=== PATIENT | female | born 1975 | race Caucasian/White ===

== ENCOUNTER 2020-11-01 11:16 | Outpatient (REF) | payer OTHER, SELFPAY ==
--- NOTE | 2020-11-01 11:21 | XR_ITS ---
EXAMINATION: XR CHEST CLINICAL INFORMATION: Shortness of breath COMPARISON: Previous chest x-rays most recent available November 2007 TECHNIQUE: 2 views of the chest were obtained. FINDINGS: The cardiac and mediastinal contours are normal. The lungs are clear. There is no pleural effusion or pneumothorax. Bony structures are unremarkable. XR/XR chest 2V IMPRESSION: Unremarkable examination.
[2020-11-01 14:06] LABS: MANUAL DIFF FLAG NO
[2020-11-01 14:18] LABS: Basophils Percent Auto 0.5 % (0-2); Eosinophils Absolute Auto 0.2 X10*3/uL (0.0-0.4); Eosinophils Percent Auto 1.9 % (0-4); Hematocrit 40.6 % (37-47); Hemoglobin 13.3 g/dl (12.0-16.0); Imm Gran Abs Auto 0.01 X10*3/uL (0.00-0.03); Imm Gran Pct Auto 0.1 % (0.0-0.4); Lymphocytes Absolute Auto 2.5 X10*3/uL (1.2-4.9); Lymphocytes Percent Auto 31.1 % (20-40); Mean Corpuscular HGB Conc 32.8 g/dl (31.0-35.0); Mean Corpuscular Hemoglobin 31.5 pg (27.0-33.0); Mean Corpuscular Volume 96.2 fL (80-98); Mean Platelet Volume 10.1 fL (9.4-12.3); Monocytes Absolute Auto 0.5 X10*3/uL (0.1-1.2); Monocytes Percent Auto 6.1 % (2-11); Neutrophils Absolute Auto 4.8 X10*3/uL (2.0-8.3); Neutrophils Percent Auto 60.3 % (45-73); Platelet Count 296 X10*3/uL (160-400); Red Blood Count 4.22 X10*6/uL (4.20-5.50); Red Cell Distribution Width 12.1 % (11.0-16.0); White Blood Count 7.9 X10*3/uL (4.8-10.8)
[2020-11-01 14:50] LABS: Anion Gap 12 (12-20); Blood Urea Nitrogen 12 mg/dL (9-16); Calcium 8.7 mg/dL (8.4-10.2); Carbon Dioxide 26 mmol/L (22-29); Chloride 105 mmol/L (96-108); Estimated Glomerular Filt Rate > 60; Glucose Fasting 84 mg/dL (60-99); Sodium 139 mmol/L (135-145)
== END 2020-11-01 11:17 | disposition home or self-care (01) ==
LOC: HO.HMGCLDS 11:16
PROVIDERS: Nurse Practitioner Family; PCP Internal Medicine; Visit Provider Nurse Practitioner Family
DX: R06.02 Shortness of breath (principal)
CPT/HCPCS: 36415; 71046; 80048; 85025

== ENCOUNTER 2020-11-01 11:16 | Outpatient (REF) | payer OTHER, SELFPAY | END 2020-11-01 11:17 | disposition home or self-care (01) | LOC: HO.LAB 11:16 | PROVIDERS: Visit Provider Nurse Practitioner Family | DX: Z20.828 Contact with and (suspected) exposure to other viral communicable diseases (principal) | CPT/HCPCS: U0003 ==

== ENCOUNTER 2020-12-19 07:09 | Outpatient (REF) | payer OTHER, SELFPAY ==
[2020-12-19 07:47] LABS: MANUAL DIFF FLAG NO
[2020-12-19 07:59] LABS: Basophils Absolute Auto 0.1 X10*3/uL (0.0-0.2); Basophils Percent Auto 0.7 % (0-2); Eosinophils Absolute Auto 0.2 X10*3/uL (0.0-0.4); Eosinophils Percent Auto 2.5 % (0-4); Hematocrit 42.1 % (37-47); Hemoglobin 13.6 g/dl (12.0-16.0); Imm Gran Abs Auto 0.01 X10*3/uL (0.00-0.03); Imm Gran Pct Auto 0.1 % (0.0-0.4); Lymphocytes Absolute Auto 2.4 X10*3/uL (1.2-4.9); Lymphocytes Percent Auto 31.3 % (20-40); Mean Corpuscular HGB Conc 32.3 g/dl (31.0-35.0); Mean Corpuscular Hemoglobin 31.2 pg (27.0-33.0); Mean Corpuscular Volume 96.6 fL (80-98); Mean Platelet Volume 9.7 fL (9.4-12.3); Monocytes Absolute Auto 0.5 X10*3/uL (0.1-1.2); Monocytes Percent Auto 6.5 % (2-11); Neutrophils Absolute Auto 4.5 X10*3/uL (2.0-8.3); Neutrophils Percent Auto 58.9 % (45-73); Platelet Count 311 X10*3/uL (160-400); Red Blood Count 4.36 X10*6/uL (4.20-5.50); White Blood Count 7.6 X10*3/uL (4.8-10.8)
[2020-12-19 08:00] LABS: INTERNATIONAL NORM RATIO 1.1 (0.9-1.1); Prothrombin Time 12.5 SEC (10.8-13.0)
[2020-12-19 08:03] LABS: Partial Thromboplastin Time 33.7 SEC (24.1-38.0)
[2020-12-19 08:15] LABS: Glucose Urine UA NEG (NEG); Leukocyte Esterase Urine NEG (NEG); Nitrite Urine NEG (NEG); PH 6.5 (5.0-8.0); Specific Gravity - Urine 1.025 (1.005-1.025); Urine Blood TRACE (NEG); Urine Ketones NEG (NEG); Urine Protein NEG (NEG-TRACE)
[2020-12-19 08:19] LABS: Alanine Aminotransferase 7 U/L (0-31); Albumin Level 4.1 g/dL (3.5-5.0); Alkaline Phosphatase 78 U/L (39-117); Anion Gap 13 (12-20); Aspartate Amino Transferase 13 U/L (5-31); Bilirubin Total 0.3 mg/dL (0.0-1.0); Blood Urea Nitrogen 12 mg/dL (9-16); Calcium 8.5 mg/dL (8.4-10.2); Carbon Dioxide 26 mmol/L (22-29); Chloride 106 mmol/L (96-108); Cholesterol 205 mg/dL; Estimated Glomerular Filt Rate > 60; Glucose Fasting 87 mg/dL (60-99); HDL Cholesterol 48 mg/dL; LDL Cholesterol Calculated 138 mg/dl; Potassium 4.1 mmol/L (3.3-5.1); Sodium 141 mmol/L (135-145); Total Protein 6.8 g/dL (6.5-8.0); Triglycerides 99 mg/dL
[2020-12-19 08:20] LABS: Appearance Urine HAZY; Color Urine YELLOW
[2020-12-19 08:33] LABS: Mucus Urine 2+ /LPF; Squamous Epithelial Cell Urine 1+ /LPF; WBC Urine 0 /HPF (0-4)
[2020-12-19 08:38] LABS: HIV AB/AG Nonreactive (Nonreactive); HIV Num 1 0.07 S/CO (0.00-0.99)
[2020-12-19 08:42] LABS: TSH reflex Free T4 1.11 uIU/mL (0.32-4.0)
== END 2020-12-19 07:10 | disposition home or self-care (01) ==
LOC: HO.LAB 07:09
PROVIDERS: Visit Provider Internal Medicine
DX: Z00.00 Encounter for general adult medical examination without abnormal findings (principal)
CPT/HCPCS: 36415; 80053; 80061; 81001; 81003; 84443; 85025; 85610; 85730; 86900; 86901; 87389

== ENCOUNTER 2021-08-31 14:06 | Outpatient (REF) | payer OTHER, SELFPAY ==
[2021-08-31 14:55] LABS: Influenza A PCR NEGATIVE (Negative); Influenza B PCR NEGATIVE (Negative); Resp Syncy Virus RNA Qual PCR NEGATIVE (Negative); SARS COV2 PCR INHOUSE NEGATIVE (Negative)
== END 2021-08-31 14:07 | disposition home or self-care (01) ==
LOC: HO.LNP 14:06
PROVIDERS: Visit Provider Physician Assistant Medical
DX: Z20.822 Contact with and (suspected) exposure to COVID-19 (principal); J06.9 Acute upper respiratory infection, unspecified
CPT/HCPCS: 0241U

== ENCOUNTER 2021-09-11 13:15 | Outpatient (AMB) | payer OTHER, SELFPAY ==
[2021-09-11 13:21] VITALS: BP 120/76; TEMP 36.1; O2SAT 98; BMI 22.4
--- NOTE | 2021-09-11 13:21 | MHC.PC.OV ---
Vital Signs 09/11/21 13:21 Height 5 ft 4 in Weight 131 lb BMI 22.4 BP 120/76 Blood Pressure Location Lt brachial Position Sitting Temp 96.9 F Temp Source Temporal Artery Scan Pulse Oximetry (%) 98 Oxygen Delivery Method Room Air Intake Visit Reasons: migraine, depression Byproducts Operator Required: No Accompanied by: Self / Same As Patient Allergies No Known Allergies Allergy (Verified 09/05/25 10:02) Tobacco use date assessed: 07/12/21 HPI migraine, depression HPI Details 10/01 - surgery in [facility] Medical History (Updated 09/05/25 @ 10:57 by Aline Quarles NP) Epigastric pain COVID-19 Pre-operative clearance Viral illness Pure hypercholesterolemia Smoker Anxiety and depression Migraine Nohemi rash of groin Surgical History History of eyelid surgery Status post abdominoplasty (~01/13/20) History of section History of tubal ligation Family History Father HTN (hypertension) Heart attack Mother No problems noted. Family/Other Breast cancer Social History Household Members: Spouse Household Members Other:: son Housing: House Alcohol intake: current Alcohol intake frequency: holidays/special occasions only Patient Tobacco Use Status: Current everyday Tobacco user Tobacco use type: Cigarette Cigarettes Per Day: 6 e-Cigarette/Vaping Use: Never Used Second Hand Smoke Exposure: No service: No Current occupational status: employed Current occupation: [employer] Current occupational exposures/hazards: No Sexual orientation: Straight/Heterosexual Gender identity: Female Cognitive needs: No Hearing needs: No Vision needs: No Questionnaire Thrive Questionnaire Date Thrive assessed: 07/12/21 JOSE-7 AMB Questionnaire JOSE-7 Date JOSE - 7 assessed: 07/12/21 Source: Developed by Drs. Tyshawn Peña, Nataliya Ramirez, Rolf Giles and colleagues, with an educational luis enrique from [employer]. Physical exam (Primary Care) Vital Signs: Last Vital Signs Temp 96.9 F 09/11/21 13:21 BP 120/76 09/11/21 13:21 Pulse Ox 98 09/11/21 13:21 Oxygen Delivery Method Room Air 09/11/21 13:21 BMI result Body Mass Index 22.4 Tobacco/Smoking Status: Tobacco use Status Tobacco use date assessed 07/12/21 09/11/21 13:25 Patient Tobacco Use Status Current everyday Tobacco 09/11/21 13:25 e-Cigarette/Vaping Use Never Used 09/11/21 13:25 Thrive Assessment: Date of Thrive Assessment Date Thrive assessed 07/12/21 09/11/21 13:25 Office Procedures Flu Questionnaire Does the patient have a severe egg allergy?: No Immunizations flu vacc [id number] 6mos up(PF) 60 mcg(15 mcgx4)/0.5 mL IM syringe Performing Provider: Lonny Garcia MD [facility] Documented (not given) by: HAN Grewal on 09/11/21 13:25 Reason Not Given: Patient Refused Coding Level of Care Code Admin Sign Off/No Billing Diagnoses Pure hypercholesterolemia E78.00
== END 2021-09-11 13:48 ==
LOC: HO.HMGH 13:15
PROVIDERS: PCP Internal Medicine; Visit Provider Internal Medicine
DX: E78.00 Pure hypercholesterolemia, unspecified (principal)
CPT/HCPCS: 99499

== ENCOUNTER 2021-09-21 06:29 | Outpatient (REF) | payer OTHER, SELFPAY ==
[2021-09-21 06:36] LABS: MANUAL DIFF FLAG NO
[2021-09-21 07:15] LABS: Basophils Percent Auto 0.5 % (0-2); Eosinophils Absolute Auto 0.2 X10*3/uL (0.0-0.4); Eosinophils Percent Auto 3.2 % (0-4); Hematocrit 41.6 % (37.0-47.0); Hemoglobin 13.5 g/dl (12.0-16.0); Imm Gran Abs Auto 0.02 X10*3/uL (0.00-0.03); Imm Gran Pct Auto 0.3 % (0.0-0.4); Lymphocytes Absolute Auto 2.7 X10*3/uL (1.2-4.9); Lymphocytes Percent Auto 36.1 % (20-40); Mean Corpuscular HGB Conc 32.5 g/dl (31.0-35.0); Mean Corpuscular Hemoglobin 31.3 pg (27.0-33.0); Mean Corpuscular Volume 96.5 fL (80.0-98.0); Mean Platelet Volume 9.9 fL (9.4-12.3); Monocytes Absolute Auto 0.5 X10*3/uL (0.1-1.2); Monocytes Percent Auto 7.1 % (2-11); Neutrophils Absolute Auto 3.9 x10*3/uL (2.0-8.3); Neutrophils Percent Auto 52.8 % (45-73); Platelet Count 280 X10*3/uL (160-400); Red Blood Count 4.31 X10*6/uL (4.20-5.50); Red Cell Distribution Width 12.4 % (11.0-16.0); White Blood Count 7.4 X10*3/uL (4.8-10.8)
[2021-09-21 07:46] LABS: Anion Gap 8 (12-20); Blood Urea Nitrogen 14 mg/dL (9-16); Calcium 8.8 mg/dL (8.4-10.2); Carbon Dioxide 26 mmol/L (22-29); Chloride 107 mmol/L (96-108); Estimated Glomerular Filt Rate > 60; Glucose Random 90 mg/dL (60-115); Sodium 137 mmol/L (135-145)
[2021-09-21 07:48] LABS: Appearance Urine CLEAR; Color Urine YELLOW; Glucose Urine UA NEG (NEG); Leukocyte Esterase Urine NEG (NEG); Nitrite Urine NEG (NEG); Specific Gravity - Urine >= 1.030 (1.005-1.025); UACC Culture Trigger NO; Urine Blood TRACE (NEG); Urine Ketones NEG (NEG); Urine Protein NEG (NEG-TRACE)
[2021-09-21 07:59] LABS: Mucus Urine 2+ /LPF; WBC Urine 0 /HPF (0-4)
== END 2021-09-21 06:30 | disposition home or self-care (01) ==
LOC: HO.LAB 06:29
PROVIDERS: PCP Internal Medicine; Visit Provider Internal Medicine
DX: Z00.00 Encounter for general adult medical examination without abnormal findings (principal); I10 Essential (primary) hypertension; E78.00 Pure hypercholesterolemia, unspecified
CPT/HCPCS: 36415; 80048; 81001; 81003; 85025

== ENCOUNTER 2022-08-01 09:51 | Outpatient (REF) | payer OTHER, SELFPAY ==
--- NOTE | ~2022-08-01 | MM_ITS ---
EXAMINATION: MM SCREENING DIGITAL BREAST TOMOSYNTHESIS, BILATERAL CLINICAL INFORMATION: Screening. Asymptomatic. The lifetime risk of breast cancer based on the Tyrer-Cuzick Model is 10%. COMPARISON: Mammography: 08/27/2012 TECHNIQUE: Digital breast tomosynthesis is performed in both the craniocaudal and mediolateral oblique views along with computer-aided detection (CAD). Synthesized 2D images are generated from the tomosynthesis. FINDINGS: There are scattered areas of fibroglandular density (ACR BI-RADS breast composition Category b). There are no significant masses, abnormal calcifications, or other abnormalities. Parenchymal pattern is similar to prior remote exam. There is no architectural abnormality. The axilla are unremarkable. MM/MM tomosynthesis screening BI IMPRESSION: No mammographic evidence of malignancy. ASSESSMENT: BI-RADS 1: Negative RECOMMENDATION: Routine annual mammography screening. This patient's information was entered into a reminder system with a target due date for their next mammogram.
== END 2022-08-01 09:52 | disposition home or self-care (01) ==
LOC: HO.MAMMO 09:51
PROVIDERS: Visit Provider Internal Medicine
DX: Z12.31 Encounter for screening mammogram for malignant neoplasm of breast (principal)
CPT/HCPCS: 77063; 77067

== ENCOUNTER 2022-09-12 13:49 | Outpatient (RCR) | payer OTHER, SELFPAY ==
--- NOTE | 2022-10-07 10:43 | MHC.PT.DC ---
[facility] [place] Office [place] Office [place] Office [address] Teresa Macario [address] [facility] [phone] F: [phone] F: [phone] F: [phone] F: [phone] Physical Therapy Discharge Report Diagnosis: LOW BACK PAIN Date of Surgery: Date of Evaluation: 09/12/22 Date of Discharge: 10/07/22 Treatments to Date: 1 Cancellations to Date: 0 No Shows to Date: 3 Discharge Status: Visit Non-compliance Discharge Summary: ABILIO NO SHOWED FOR ALL THREE OF HER SCHEDULED VISITS AND IS DCed AT THIS TIME DUE TO NON-COMPLIANCE. Electronically signed by: THOMAS MCPHERSON PT, DPT Please sign and return to therapist. Thank you for your referral.
== END 2022-10-07 10:43 | disposition home or self-care (01) ==
LOC: HO.PT 13:49
PROVIDERS: PCP Internal Medicine; Visit Provider Nurse Practitioner Family
DX: M54.50 Low back pain, unspecified (principal)
CPT/HCPCS: 97140; 97161

== ENCOUNTER 2022-10-15 14:35 | Outpatient (REF) | payer OTHER, SELFPAY ==
[2022-10-16 11:18] LABS: BV Int Neg Control Negative (Negative); BV Int Pos Control Positive (Positive)
== END 2022-10-15 14:36 | disposition home or self-care (01) ==
LOC: HO.LNP 14:35
PROVIDERS: Visit Provider Internal Medicine
DX: Z13.89 Encounter for screening for other disorder (principal)
CPT/HCPCS: 87480; 87510; 87660

== ENCOUNTER 2022-11-21 08:44 | Outpatient (REF) | payer OTHER, SELFPAY ==
[2022-11-21 12:46] LABS: CT PCR NOT DETECTED (Not Detect.); NG PCR NOT DETECTED (Not Detect.)
[2022-11-21 14:37] LABS: BV Int Neg Control Negative (Negative); BV Int Pos Control Positive (Positive)
[2022-11-26 16:29] LABS: HPV mRNA E6/E7 rflx Not Detected (Not Detected)
== END 2022-11-21 08:45 | disposition home or self-care (01) ==
LOC: HO.LNP 08:44
PROVIDERS: PCP Internal Medicine; Visit Provider Advanced Practice Midwife
DX: Z01.419 Encounter for gynecological examination (general) (routine) without abnormal findings (principal); N89.8 Other specified noninflammatory disorders of vagina
CPT/HCPCS: 0353U; 87480; 87510; 87624; 87660; 88142

== ENCOUNTER 2023-02-04 10:41 | Day surgery (SDC) | payer OTHER, SELFPAY ==
[2023-01-29 16:18] VITALS: BMI 23.3
--- NOTE | 2023-02-03 13:35 | HO.ANESPROP2 ---
Documented by User: Raysa Feliciano NP 02/03/23 13:36 HPI - Anesthesia Eval Consult details Narrative: 47yo F for Colonoscopy PMFSH Active Problems Active Problems: All Active Problems (Updated 11/21/22 @ 08:53 by Nita Falcon CMA) Bacterial vaginosis (Acute) Screening for colon cancer (Acute) Low back pain (Acute) Adult general medical exam (Acute) Pure hypercholesterolemia (Acute) Cervical paraspinal muscle spasm (Acute) Smoker (Acute) Anxiety and depression (Acute) Migraine (Acute) Past Medical History Medical History Anxiety and depression Nohemi rash of groin COVID-19 Migraine Pre-operative clearance Pure hypercholesterolemia Smoker Viral illness Family History Family History Father No problems noted. Mother No problems noted. Surgical History Surgical History History of section History of eyelid surgery History of tubal ligation Status post abdominoplasty (~01/13/20) Social History Social History Housing: House Alcohol intake: current Alcohol intake frequency: holidays/special occasions only Patient Tobacco Use Status: Current everyday Tobacco user Cigarettes Per Day: 10 e-Cigarette/Vaping Use: Never Used Second Hand Smoke Exposure: No Are you DNR?: No Advance Directives: No Advance Directives Information Provided: Yes service: No Current occupational status: employed Current occupation: [employer] Housing Current occupational exposures/hazards: No Cognitive needs: No Hearing needs: No Vision needs: No Meds Allergies Allergy/AdvReac Type Severity Reaction Status Date / Time No Known Allergies Allergy Verified 11/21/22 08:52 Exam Exam Date and Time: February 03, 2023 1335 Height,Weight and Vital Signs: Height 5 ft 4 in Weight 61.689 kg Assessment and Plan Assessment Anesthesia Assessment: Chart Reviewed Documented by User: Dolly Phillip MD 02/04/23 12:16 PMFSH Past Medical History Medical History Anxiety and depression Nohemi rash of groin COVID-19 Migraine Pre-operative clearance Pure hypercholesterolemia Smoker Viral illness Family History Family History Father No problems noted. Mother No problems noted. Family history of problems with anesthesia: No Surgical History Surgical History History of section History of eyelid surgery History of tubal ligation Status post abdominoplasty (~01/13/20) History of Problems with Anesthesia: No Social History Social History Housing: House Alcohol intake: current Alcohol intake frequency: holidays/special occasions only Patient Tobacco Use Status: Current everyday Tobacco user Cigarettes Per Day: 10 e-Cigarette/Vaping Use: Never Used Second Hand Smoke Exposure: No Are you DNR?: No Advance Directives: No Advance Directives Information Provided: Yes service: No Current occupational status: employed Current occupation: [employer] Current occupational exposures/hazards: No Cognitive needs: No Hearing needs: No Vision needs: No Meds Allergies Allergy/AdvReac Type Severity Reaction Status Date / Time No Known Allergies Allergy Verified 11/21/22 08:52 Exam Airway Mallampati Class: II TM Dist: >3cm Neck ROM: Full Loose/Missing/Broken Teeth: No Heart: rrr Lungs: cta Assessment and Plan Assessment Anesthesia Assessment: Anesthesia Plan Discussed and Smoking Cess. Discussed Final Anesthetic Review Family History of Problems with Anesthesia: No History of Problems with Anesthesia: No NPO: Yes ASA Class: II Final Preanesthetic Review: No Changes in Pt Med Stat, Meds/Allgs Chart Reviewed, Consent Obtained/Reviewed and Anes Risks/Benef Reviewed Patient Risk: Low Procedure Risk: Low Anesthetic Plan Anesthetic Plan: MAC: Disposition: Standard PACU
[2023-02-04 10:42] VITALS: BP 133/69; PULSE 80; RESP 20; TEMP 36.6; O2SAT 98
[2023-02-04] MEDS: Lactated Ringers 1,000 ML 100 ML IVCONT (11:03)
--- NOTE | 2023-02-04 12:02 | MHC.SHP ---
Pre-Procedural Eval Section A Date of Service: 02/04/23 Section B Chief Complaint: screening Relevant Family History (Specify if Yes): No Relevant Social History: None Present Medications: see Short Stay Collaborative assessment Medical History: Significant History (Anxiety and depression Nohemi rash of groin Migraine Pre-operative clearance Pure hypercholesterolemia Smoker Viral illness) History of Previous Operations: Relevant previous surgery/procedure and date(s) (History of section History of eyelid surgery History of tubal ligation Status post abdominoplasty (~01/13/20)) Allergies: Allergies Allergy/AdvReac Type Severity Reaction Status Date / Time No Known Allergies Allergy Verified 11/21/22 08:52 Review of Systems Sugical H&P ROS: Negative: Constitution, Cardiovascular, Respiratory, Neurological, Psychiatric, Hem-Onc, Allergic/Immunologic, Gastrointestinal, Genitourinary, Musculoskeletal, Integumentary, Endocrine and Eyes/Ears/Nose/Throat Exam Surgical H&P Exam: Normal: HEENT, Normal: Heart, Normal: Lungs, Normal: Extremities, Normal: Abdomen, Normal: Skin and Normal: Neurological Plan Diagnosis/Plan: Unchanged I have reviewed the history and physical and performed a pertinent physical examination on my patient. No changes have occurred unless specified. Time Spent With Patient Time: Total time managing care of this patient today ____ minutes.
--- NOTE | 2023-02-04 12:04 | P.OP_ITS ---
Operative Note Operative Note Date of Service: 02/04/23 Narrative: Operative Information Procedure Description: Colonoscopy Indication: screening Anesthesia: MAC COLONOSCOPY Instrument: Olympus variable stiffness pediatric scope 190L Colonoscopy Monitoring: Vital signs and clinical assessment, continuous EKG monitoring, Pulse oximetry, Carbon Dioxide monitoring and blood pressure monitoring were done throughout the procedure. Colon withdrawal time was 8 minutes. Procedure: The patient was placed in the left lateral decubitis position and pre-procedure medications were administered. After a digital rectal examination of the ano-rectum, the video colonoscope was inserted into the rectum and advanced through the colon to the cecum/TI. The colonoscope was slowly withdrawn in a retrograde panoramic fashion and the colon mucosa was carefully examined including a retroflexed view of the rectum. Findings and interventions are described below. Procedure Difficulty: easy Findings: Terminal Ileum-normal Cecum:normal Ascending Colon: normal Transverse Colon -normal Descending Colon:normal Sigmoid Colon: moderate diverticulosis Rectum: Retroflexion with small internal hemorrhoids, grade I with skin tags Anorectum - normal Colon preparation: [place] Bowel Preparation Scale Right colon; 1-2 Transverse colon: 1-2 Left colon; 1-2 (0 = Unprepared colon segment with mucosa not seen due to solid stool that cannot be cleared. 1 = Portion of mucosa of the colon segment seen, but other areas of the colon segment not well seen due to staining, residual stool and/or opaque liquid. 2 = Minor amount of residual staining, small fragments of stool and/or opaque liquid, but mucosa of colon segment seen well. 3 = Entire mucosa of colon segment seen well with no residual staining, small fragments of stool or opaque liquid) Impression and Post Procedure Diagnosis: internal hemorrhoids diverticular disease Plan: High fiber diet leaflet Avoid straining at stool, epsom salts and sitz bath, anusol supps or cream Repeat Colonoscopy in 1 year due to fair prep or earlier if clinically indicated Above findings were reviewed with the patient and relevant handouts were provided if indicated.
[2023-02-04 12:55] VITALS: BP 116/64; PULSE 85; RESP 17; TEMP 36.7; O2SAT 97
[2023-02-04 13:10] VITALS: BP 129/84; PULSE 69; RESP 16; TEMP 36.3; O2SAT 100
== END 2023-02-04 14:10 | disposition home or self-care (01) ==
PROVIDERS: PCP Internal Medicine; Visit Provider Internal Medicine Gastroenterology
PROC: 0DJD8ZZ Inspection of Lower Intestinal Tract, Via Natural or Artificial Opening Endoscopic (ICD-10-PCS; CPT 45378; principal; 2023-02-04 11:50)
DX: Z12.11 Encounter for screening for malignant neoplasm of colon (principal); K57.30 Diverticulosis of large intestine without perforation or abscess without bleeding; K64.0 First degree hemorrhoids; K64.4 Residual hemorrhoidal skin tags; M54.50 Low back pain, unspecified; E78.00 Pure hypercholesterolemia, unspecified; F41.8 Other specified anxiety disorders; F17.210 Nicotine dependence, cigarettes, uncomplicated; Z98.51 Tubal ligation status; Z98.890 Other specified postprocedural states
CPT/HCPCS: 45378

== ENCOUNTER 2023-02-06 12:54 | Outpatient (REF) | payer OTHER, SELFPAY ==
[2023-02-07 11:07] LABS: CT PCR NOT DETECTED (Not Detect.); NG PCR NOT DETECTED (Not Detect.)
[2023-02-07 12:33] LABS: BV Int Neg Control Negative (Negative); BV Int Pos Control Positive (Positive)
== END 2023-02-06 12:55 | disposition home or self-care (01) ==
LOC: HO.LAB 12:54
PROVIDERS: PCP Internal Medicine; Visit Provider Advanced Practice Midwife
DX: N76.0 Acute vaginitis (principal); B96.89 Other specified bacterial agents as the cause of diseases classified elsewhere; Z20.2 Contact with and (suspected) exposure to infections with a predominantly sexual mode of transmission
CPT/HCPCS: 0353U; 87480; 87510; 87660

== ENCOUNTER 2023-02-06 13:30 | Outpatient (REF) | payer OTHER, SELFPAY | END 2023-02-06 13:31 | disposition home or self-care (01) | LOC: HO.LNP 13:30 | PROVIDERS: Visit Provider Advanced Practice Midwife | DX: Z13.89 Encounter for screening for other disorder (principal) ==

== ENCOUNTER 2023-07-03 08:42 | Outpatient (AMB) | payer OTHER, SELFPAY ==
[2023-07-03 08:48] VITALS: BP 122/64; BMI 23.9
--- NOTE | 2023-07-03 08:48 | A.OFFVIS_ITS ---
Intake Vital Signs 07/03/23 08:48 Height 5 ft 4 in Weight 139 lb BMI 23.9 BP 122/64 Intake Visit Reasons: vaginal discharge Intake Note: Has been having some greenish discharge for a year now. Has had antibiotics from her pcp and OBGYN and it hasn't gone away and now she is having odor. Armed Security Professional Required: No Information Interpreted: non-clinical & clinical Polishing Machine Operator: Polishing Machine Operator Present (Shira) Allergies No Known Allergies Allergy (Verified 07/03/23 08:55) Is last menstrual period known: No (very irregular 2 times a month) Post menopausal: No HPI vaginal discharge HPI Details Patient is here for a problem visit to discuss a vaginal discharge that she has had since September she complains of a greenish discharge that is very wet and bothersome to her and she has been in to see other providers both in her primary care practice and in this office and has been tested for everything and discussions about allowing air to her vagina and not putting anything else in their have taken place she is not worried about non monogamous behavior on the part of her partner and she has been tested and she has been treated twice with Flagyl for Gardnerella and wants with fluconazole to no avail. She has recently also started to perceive an odor which is really discussed Ng to her and is affecting her marriage because she does not want to have sex and her is bothered by it too. She became tearful discussing this she does use panty liners and she cannot imagine not using panty liners and questions what should she do if she can not use panty liners. She is also not using condoms. [facility] Medical History Anxiety and depression Nohemi rash of groin COVID-19 Migraine Pre-operative clearance Pure hypercholesterolemia Smoker Viral illness Surgical History History of section History of eyelid surgery History of tubal ligation Status post abdominoplasty (~01/13/20) Family History Father No problems noted. Mother No problems noted. Social History Housing: House Alcohol intake: current Alcohol intake frequency: holidays/special occasions only Patient Tobacco Use Status: Current everyday Tobacco user Cigarettes Per Day: 10 e-Cigarette/Vaping Use: Never Used Second Hand Smoke Exposure: No service: No Current occupational status: employed Current occupation: [employer] Current occupational exposures/hazards: No Cognitive needs: No Hearing needs: No Vision needs: No Female Reproductive History Menstrual Age of Menarche: 14 Duration of menses: 3-5 days control method: other (tubal ligation) Total pregnancies: 2 Full term: 2 Number of Living Children: 2 Date of last pap smear: 11/21/22 (negative) Date of Mammogram: 08/01/22 Physical Exam Vital Signs: Last Vital Signs BP 122/64 07/03/23 08:48 BMI result Body Mass Index 23.9 Other: Thin white discharge not extremely abundant not apparently greenish to this provider's eyes. Cultures/swabs taken for gonorrhea chlamydia trichomoniasis Gardnerella Nohemi acid-fast bacteria/mycobacteria and group B strep as well as a routine culture all being sent to the lab and will also order ultrasound to assess for any structure that could be bleeding and causing spotting resulting in a greenish discharge. Cervix is nulliparous pink smooth did not bleed with any of the swabs. There is a slight malodor though mask was in use. External Female Exam: normal external appearance Speculum Exam - Vagina: normal appearance of the vagina and normal vaginal discharge Speculum Exam - Cervix: normal appearance of the cervix Bimanual exam- vagina & uterus: normal bimanual exam, uterine size normal, consistency normal, uterine mobility normal, uterine shape normal and non-tender Bimanual Exam- Adnexa, other: normal adnexae, no masses and No adnexal tendern ess Results Reviewed Results Reviewed: Previous visits and testing have all been reviewed. Assessment & Plan Assessment & Plan (1) Problematic vaginal discharge: Comment: Patient states it has been there since September of 2022 she has been treated twice for BV and once for yeast now malodorous greenish and extremely frustrating for patient. Full thorough eval being repeated. Code(s): N89.8 - Other specified noninflammatory disorders of vagina (2) Irregular menstruation, unspecified: Comment: Twice in 1 month , rule out microscopic spotting presenting as greenish discharge. Code(s): N92.6 - Irregular menstruation, unspecified Plan Patient is here for a problem visit to discuss a vaginal discharge that she has had since September she complains of a greenish discharge that is very wet and bothersome to her and she has been in to see other providers both in her primary care practice and in this office and has been tested for everything and discussions about allowing air to her vagina and not putting anything else in their have taken place she is not worried about non monogamous behavior on the part of her partner and she has been tested and she has been treated twice with Flagyl for Gardnerella and wants with fluconazole to no avail. She has recently also started to perceive an odor which is really discussed Ng to her and is affecting her marriage because she does not want to have sex and her is bothered by it too. She became tearful discussing this she does use panty liners and she cannot imagine not using panty liners and questions what should she do if she can not use panty liners. She is also not using condoms. Discussed the plan to evaluate for every possible finding testing sent for gonorrhea chlamydia trichomoniasis Gardnerella and yeast also the swab sent for acid-fast bacteria/mycobacteria also swab sent for group B strep also a routine culture was also sent unclear what may be found and unclear of treatment plan but we will check for every possibility. In the meantime I am also ordering a pelvic ultrasound to assess just in case there is some microscopic bleeding that is happening and turning her discharge green that might possibly be resulting from a polyp or some unseen issue. We will have a visit when all results are back if anything shows positive I recommend that she treated accordingly it is always possible that Gardnerella will show up again because it is a common finding and I would recommend that she treated if it shows up. In addition I strongly strongly recommend the use of partner condom use 100% of the time and to stop using panty liners. Discussed the necessity for air and clean water to a vaginal environment for health and that if we are checking everything them every possibility needs to be considered and if it turns out just simply to be Gardnerella she will still need to allow for healthy vaginal environment to reset it 's balance. Orders: Orders Acid-fast Culture + Smear Today N89.8 - Other specified noninflammatory disorders of vagina Routine Culture w Gram Stain Today N89.8 - Other specified noninflammatory disorders of vagina Bacterial Vaginosis Panel Today N89.8 - Other specified noninflammatory disorders of vagina CT NG by PCR Today N89.8 - Other specified noninflammatory disorders of vagina US pelvic and transvaginal Today N89.8 - Other specified noninflammatory disorders of vagina, N92.6 - Irregular menstruation, unspecified Group B Strep PCR Today N89.8 - Other specified noninflammatory disorders of vagina Coding Level of Care Code Est Pt Level 3 (01004) Diagnoses Problematic vaginal discharge N89.8 Irregular menstruation, unspecified N92.6
== END 2023-07-03 10:02 | disposition home or self-care (01) ==
LOC: HO.HWSM 08:42
PROVIDERS: PCP Internal Medicine; Visit Provider Advanced Practice Midwife
DX: N89.8 Other specified noninflammatory disorders of vagina (principal); N92.6 Irregular menstruation, unspecified
CPT/HCPCS: 99213

== ENCOUNTER 2023-07-03 08:42 | Outpatient (REF) | payer OTHER, SELFPAY ==
[2023-07-04 04:12] LABS: CT PCR NOT DETECTED (Not Detect.); NG PCR NOT DETECTED (Not Detect.)
[2023-07-04 15:41] LABS: BV Int Neg Control Negative (Negative); BV Int Pos Control Positive (Positive)
== END 2023-07-03 08:43 | disposition home or self-care (01) ==
LOC: HO.LNP 08:42
PROVIDERS: PCP Internal Medicine; Visit Provider Advanced Practice Midwife
DX: N89.8 Other specified noninflammatory disorders of vagina (principal); N92.6 Irregular menstruation, unspecified
CPT/HCPCS: 0353U; 87070; 87116; 87150; 87205; 87206; 87480; 87510; 87660

== ENCOUNTER 2023-08-06 14:30 | Outpatient (AMB) | payer OTHER, SELFPAY ==
[2023-08-06 14:31] VITALS: BP 130/76; PULSE 76; O2SAT 99; BMI 23.9
--- NOTE | 2023-08-06 14:31 | A.OFFPC_ITS ---
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 Garcia. Patient reports that she is followed by [facility] for the same issue, she did have negative vaginal swabs, patient has an upcoming pelvic and transvaginal ultrasound 08/2023, and then she has a follow-up appointment with gynecology. Patient denies STI exposure. Reports daily vaginal discharge, at time she has to change panty liner about 3 times per day. Pap smear normal, HPV negative 11/2022 with [facility]. Patient denies any urinary symptoms. Reports chronic low back pain. In addition, patient reports migraine headache for the past 5 days now. She reports that in the past she was on migraine medication, and this was stopped due to her not having migraine headaches. Patient reports sensitivity to light, feels better in dark room. Reports taking Motrin with no much improvement. Denies other neurological symptoms. [facility] Medical History COVID-19 Pre-operative clearance Viral illness Pure hypercholesterolemia Smoker Anxiety and depression Migraine Nohemi rash of groin Surgical History History of eyelid surgery Status post abdominoplasty (~01/13/20) History of section History of tubal ligation Family History Father No problems noted. Mother No problems noted. Social History (Reviewed 09/27/23 @ 15:09 by LELE Huang Housing: House Alcohol intake: current Alcohol intake frequency: holidays/special occasions only Patient Tobacco Use Status: Current everyday Tobacco user Cigarettes Per Day: 10 e-Cigarette/Vaping Use: Never Used Second Hand Smoke Exposure: No service: No Current occupational status: employed Current occupation: [employer] Current occupational exposures/hazards: No Cognitive needs: No Hearing needs: No Vision needs: No Female Reproductive History Menstrual Age of Menarche: 14 Questionnaire Thrive Questionnaire Date Thrive assessed: 07/12/21 AUDIT C Alcohol Use Questionnaire (AUDIT-C) 1. How often do you have a drink containing alcohol?: Never 2. How many drinks containing alcohol do you have on a typical day when you are drinking?: 1 or 2 (0) 3. How often do you have six or more drinks on one occasion?: Never Total Score: 0 Score Reviewed/Action Taken: No JOSE-7 AMB Questionnaire JOSE-7 Date JOSE - 7 assessed: 09/06/22 Source: Developed by Drs. Tyshawn Peña, Nataliya Ramirez, Rolf Giles and colleagues, with an educational luis enrique from [employer]. Review of Systems Const Denies body aches, Denies chills, Denies fever(s) and Reports headache(s) Eyes Denies change in vision ENT Denies dizziness, Denies otalgia, Reports headache(s), Denies nasal discharge, Denies sinus pain and Denies sore throat Card Denies chest pain, Denies edema, Denies lightheadedness and Denies dyspnea Resp Denies dyspnea and Denies wheezing GI Denies abdominal pain, Denies constipation, Denies diarrhea, Denies nausea and Denies vomiting Reports as per HPI, Denies dysuria and Denies pelvic pain Musc Denies myalgias Skin/Breast Denies rash Neuro Denies dizziness and Reports headache(s) Aller/Immun Denies wheezing Physical exam (Primary Care) Vital Signs: Last Vital Signs Pulse 76 08/06/23 14:31 BP 130/76 08/06/23 14:31 Pulse Ox 99 08/06/23 14:31 Oxygen Delivery Method Room Air 08/06/23 14:31 BMI result Body Mass Index 23.9 Tobacco/Smoking Status: Tobacco use Status Tobacco use date assessed 09/27/23 09/27/23 14:32 Patient Tobacco Use Status Current everyday Tobacco 08/06/23 14:32 e-Cigarette/Vaping Use Never Used 08/06/23 14:32 Thrive Assessment: Date of Thrive Assessment Date Thrive assessed 07/12/21 08/06/23 14:32 Const General: cooperative and no acute distress Orientation/consciousness: patient oriented x3 HENMT Head: Yes normocephalic and Yes atraumatic Mouth: oropharynx normal and moist mucous membranes Throat: Yes posterior oropharynx normal Eyes General: appearance normal, both eyes and all related structures Pupils: Equal, round and reactive pupils present Neck Neck: Yes normal visual inspection and Yes full ROM Resp Effort & Inspection: normal respiratory effort and able to speak in complete sentences Auscultation: clear to auscultation bilaterally, no crackles, no rales, no rhonchi and no wheezes Cardio Rate: regular rate Rhythm: regular rhythm Heart sounds: S1 normal heart sound present and S2 normal heart sound present GI Auscultation: normal bowel sounds Skin General skin exam: no rashes or lesions noted Neuro General: patient oriented x3 and CN's II-XI intact bilaterally Cranial nerves: Yes Equal, round and reactive pupils present Gait exam (Neuro): Normal gait present Extrem General: Yes full ROM and No edema Results AMB Urinalysis, Automated UA Leukoctes 500 Eligio/uL Last Edit by HAN Smallwood on 08/06/23 14:47 UA Nitrite Negative Last Edit by HAN Smallwood on 08/06/23 14:47 UA Urobilinogen 0.2 mg/dL Last Edit by Shanna Dotson Hina on 08/06/23 14:47 UA Protein 0 mg/dL Last Edit by Shanna Dotson Hina on 08/06/23 14:47 UA pH 6.0 Last Edit by HAN Smallwood on 08/06/23 14:47 UA Blood 80 Kvng/uL Last Edit by Shanna Dotson Hina on 08/06/23 14:47 UA Specific [place] 1.010 Last Edit by HAN Smallwood on 08/06/23 14:47 UA Ketone Negative Last Edit by HAN Smallwood on 08/06/23 14:47 UA Bilirubin 0 mg/dL Last Edit by HAN Smallwood on 08/06/23 14:47 UA Glucose 0 mg/dL Last Edit by HAN Smallwood on 08/06/23 14:47 Results Reviewed Results Reviewed: Laboratory Last Values Urine pH (Auto) 6.0 08/06/23 14:36 Specific [place] (Auto) 1.010 08/06/23 14:36 Urine Protein (Auto) 0 mg/dL 08/06/23 14:36 Glucose (UA)(Auto) 0 mg/dL 08/06/23 14:36 Urine Ketones (Auto) Negative 08/06/23 14:36 Urine Blood (Auto) 80 Kvng/uL 08/06/23 14:36 Urine Nitrite (Auto) Negative 08/06/23 14:36 Urine Bilirubin (Auto) 0 mg/dL 08/06/23 14:36 Urine Urobilinogen (Auto) 0.2 mg/dL 08/06/23 14:36 Leukocyte Esterase (Auto) 500 Eligio/uL 08/06/23 14:36 Assessment and Plan Assessment & Plan (1) Problematic vaginal discharge: Comment: Patient states it has been there since September of 2022 she has been treated twice for BV and once for yeast now malodorous greenish and extremely frustrating for patient. Full thorough eval being repeated. Code(s): N89.8 - Other specified noninflammatory disorders of vagina Plan: Continue to follow-up with [facility] Patient denies any urinary symptoms, urinalysis with blood and leukocytes, will send urine for culture, if urine culture positive for UTI will treat Patient has an upcoming pelvic and transvaginal ultrasound 08/2023 (2) Migraine: Code(s): G43.909 - Migraine, unspecified, not intractable, without status migrainosus Qualifiers: Migraine type: unspecified Status migrainosus presence: without status migrainosus Intractability: not intractable Qualified Code(s): G43.909 - Migraine, unspecified, not intractable, without status migrainosus Plan: Encouraged patient to try Tylenol 650 mg every 6 hours as needed and alternate with ibuprofen 400 mg every 8 hours p.r.n. Start sumatriptan p.r.n.-possible adverse reactions reviewed with the patient and when to notify provider Plan Keep appointment with PCP as scheduled or follow-up sooner as needed Orders: Orders Urine Culture Today N89.8 - Other specified noninflammatory disorders of vagina AMB Urinalysis Automated Today Z13.9 - Encounter for screening, unspecified Medications: New sumatriptan succinate take 1 tab at onset of headache; if no relief may repeat 1 tab after at least 2 hrs; max = 4 tabs/24 hr PO 10 tabs 0RF G43.909 - Migraine, unspecified, not intractable, without status migrainosus Coding Level of Care Code Est Pt Level 3 (20926) Diagnoses Problematic vaginal discharge N89.8 Migraine without status migrainosus, not intractable, unspecified migraine type G43.909 Migraine type: unspecified Status migrainosus presence: without status migrainosus Intractability: not intractable
== END 2023-08-06 15:11 | disposition home or self-care (01) ==
PROVIDERS: PCP Internal Medicine; Visit Provider Nurse Practitioner Family
DX: N89.8 Other specified noninflammatory disorders of vagina (principal); G43.909 Migraine, unspecified, not intractable, without status migrainosus
CPT/HCPCS: 81003; 99213

== ENCOUNTER 2023-08-06 15:01 | Outpatient (REF) | payer OTHER, SELFPAY | END 2023-08-06 15:02 | disposition home or self-care (01) | LOC: HO.LAB 15:01 | PROVIDERS: Visit Provider Nurse Practitioner Family | DX: N89.8 Other specified noninflammatory disorders of vagina (principal); R82.90 Unspecified abnormal findings in urine | CPT/HCPCS: 87086 ==

== ENCOUNTER 2023-08-08 09:37 | Outpatient (REF) | payer OTHER, SELFPAY ==
--- NOTE | ~2023-08-08 | MM_ITS ---
EXAMINATION: MM SCREENING DIGITAL BREAST TOMOSYNTHESIS, BILATERAL CLINICAL INFORMATION: Screening. Asymptomatic. COMPARISON: Mammography: This study is compared with prior exams dating back to 2012. TECHNIQUE: Digital breast tomosynthesis is performed in both the craniocaudal and mediolateral oblique views along with computer-aided detection (CAD). Synthesized 2D images are generated from the tomosynthesis. FINDINGS: There are scattered areas of fibroglandular density (ACR BI-RADS breast composition Category b). There are no significant masses, abnormal calcifications, or other abnormalities. MM/MM tomosynthesis screening BI IMPRESSION: No mammographic evidence of malignancy. ASSESSMENT: BI-RADS BI-RADS 1 - Negative RECOMMENDATION: Routine annual mammography screening. 1 year F/U This examination should not preclude the clinical evaluation of a suspicious palpable abnormality. This patient's information was entered into a reminder system with a target due date for their next mammogram.
== END 2023-08-08 09:38 | disposition home or self-care (01) ==
LOC: HO.MAMMO 09:37
PROVIDERS: PCP Internal Medicine; Visit Provider Internal Medicine
DX: Z12.31 Encounter for screening mammogram for malignant neoplasm of breast (principal)
CPT/HCPCS: 77063; 77067

== ENCOUNTER → 2023-08-08 10:00 | Outpatient (BNV) | payer OTHER, SELFPAY | PROVIDERS: PCP Internal Medicine; Visit Provider Radiology Diagnostic Radiology | DX: Z12.31 Encounter for screening mammogram for malignant neoplasm of breast (principal) | CPT/HCPCS: 77063; 77067 ==

== ENCOUNTER 2023-08-19 10:38 | Outpatient (REF) | payer OTHER, SELFPAY ==
--- NOTE | ~2023-08-19 | US_ITS ---
EXAMINATION: US PELVIS COMPLETE CLINICAL INFORMATION: Noninflammatory disorders of the vagina COMPARISON: Pelvic ultrasound 05/21/2016 TECHNIQUE: Transabdominal and transvaginal imaging was performed. FINDINGS: The uterus is of normal size and echogenicity measuring 10.5 x 3.7 x 4.8 cm. A regular homogeneous endometrium is identified measuring 0.5 cm. Nabothian cysts in the cervix. Tiny 5 mm intramural myoma in the posterior body, previously 0.9 cm. A second previously seen tiny myoma was not identified on today's exam. A previously seen cystic vaginal lesion was not identified on today's exam. Both ovaries are of normal size and echogenicity. The right measures 2.5 x 1.5 x 1.3 cm for a volume of 2.5 mL. The left measures 2.8 x 1.6 x 1.4 cm for a volume of 3.3 mL. There is trace simple volume pelvic free fluid within physiologic limits of volume. US/US pelvic and transvaginal IMPRESSION: 1. A previously seen cystic vaginal lesion was not identified on today's exam. 2. A 5 mm intramural myoma in the posterior body decreased in size. A second previously seen tiny myoma was not identified on today's exam. 3. Unremarkable sonographic appearance of the ovaries.
== END 2023-08-19 10:39 | disposition home or self-care (01) ==
LOC: HO.US 10:38
PROVIDERS: PCP Internal Medicine; Visit Provider Advanced Practice Midwife
DX: N89.8 Other specified noninflammatory disorders of vagina (principal); N92.6 Irregular menstruation, unspecified
CPT/HCPCS: 76830; 76856

== ENCOUNTER 2023-09-16 10:03 | Outpatient (AMB) | payer OTHER, SELFPAY ==
--- NOTE | 2023-09-16 10:05 | A.OFFVIS_ITS ---
Intake Vital Signs 09/16/23 10:06 Height 5 ft 4 in Weight 141 lb BMI 24.2 BP 136/80 Intake Visit Reasons: Ultrasound Follow up/Culture results Intake Note: Still having discharge and has started to have bleeding after intercourse. 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 She says that she is not prepared for an exam today because she has her. Which started on the . She also states that in the last month she also has noticed sometimes bleeding when she has sex with her she says that she has spoken about this with her primary care provider and they did a urine test and saw some blood on the dipstick but the culture ended up coming back negative as well. She is at this point considering asking her primary care provider for referral to some specialists in [place] so she can get a 2nd opinion. She said she discussed with her about using condoms and they were fighting about it but have embrace the subject but she is not willing to give a panty liners. She is however willing to do anything she can do because she is worried that by the time something is found will be too late and she has grand kids that she wa nts to live for when I asked her specifically what she is worried about she says she is worried about cancer.. HPI Comments History of Present Illness Details notes form hpi of 07/03/23 visit: Patient is here fo r a problem visit to discuss a vagin al discharge that she has had since September she compl ains of a greenish discharge that is very wet and both ersome to her and she has been in to see other provide rs both in her [facility] practice and in this offic e and has been steven benito for everything and discussions a bout allowing air to her vagina and not putting anythi ng else in their h ave taken place leela rosales is not worried a bout non monogamou s behavior on the part of her partne r and she has been tested and she lama s been treated twi ce with Flagyl for Gardnerella and w ants with fluconaz ole to no avail. She has recently a lso started to per ceive an odor whic h is really discus sed Ng to her and is affecting her m arriage because leela rosales does not want to have sex and her is bothere d by it too. She became tearful dis cussing this she d oes use panty line rs and she cannot imagine not using panty liners and q uestions what shou ld she do if she c an not use panty l iners. She is als o not using condom s. PFSH Medical History COVID-19 Pre-operative clearance Viral illness Pure hypercholesterolemia Smoker Anxiety and depression Migraine Nohemi rash of groin Surgical History History of eyelid surgery Status post abdominoplasty (~01/13/20) History of section History of tubal ligation Family History Father No problems noted. Mother No problems noted. Social History Housing: House Alcohol intake: current Alcohol intake frequency: holidays/special occasions only Patient Tobacco Use Status: Current everyday Tobacco user Cigarettes Per Day: 10 e-Cigarette/Vaping Use: Never Used Second Hand Smoke Exposure: No service: No Current occupational status: employed Current occupation: [employer] Current occupational exposures/hazards: No Cognitive needs: No Hearing needs: No Vision needs: No Female Reproductive History Menstrual Age of Menarche: 14 Duration of menses: 3-5 days Date of last menstrual period: 09/13/23 control method: other (tubal ligation) Date of last pap smear: 11/21/22 (negative) Physical Exam Other: note- this is exam of 07/03/23, pt declines exam today 09/16/23.: Other: Thin white discharge not extremely abundant not apparently greenish to this provider's eyes. Cultures/swabs taken for gonorrhea chlamydia trichomoniasis Gardnerella Nohemi acid-fast bacteria/mycobacteria and group B strep as well as a routine culture all being sent to the lab and will also order ultrasound to assess for any structure that could be bleeding and causing spotting resulting in a greenish discharge. Cervix is nulliparous pink smooth did not bleed with any of the swabs. There is a slight malodor though mask was in use. External Female Exam: normal external appearance Speculum Exam - Vagina: normal appearance of the vagina and normal vaginal discharge Speculum Exam - Cervix: normal appearance of the cervix Bimanual exam- vagina & uterus: normal bimanual exam, uterine size normal, consistency normal, uterine mobility normal, uterine shape normal and non-tender Bimanual Exam- Adnexa, other: normal adnexae, no masses and No adnexal tenderness Results Reviewed Results Reviewed: Name: Selma Wade Age/Sex: 47/F : 1975 Unit#: [id number] Attend Dr: María Mayorga CNM Re07/03/23 Status: DEP REF Location: [facility] Disch: SPEC : [id number] SACHIN: 07/03/23 STATUS: COMP REQ : [id number] RECD: 07/03/[address]: María Mayorga CNM COMP: 07/04/23 ENTERED: 07/03/23 [facility] DR: Lonny Garcia MD ORDERED: BV Panel Test Result Flag Reference Site Trichomonas DNA Negative Negative Gardnerella DNA Negative Negative Nohemi DNA Negative Negative Name: Selma Wade Age/Sex: 47/F : 1975 Unit#: [id number] Attend Dr: María Mayorga CNM Re07/03/23 Status: DEP REF Location: [facility] Disch: SPEC : [id number] SACHIN: 07/03/23 STATUS: COMP REQ : [id number] RECD: 07/03/[address]: María Mayorga CNM COMP: 07/04/23 ENTERED: 07/03/23-1538 [facility] DR: Lonny Garcia MD ORDERED: CT NG by PCR QUERIES: CT NG Source: Vaginal Test Result Flag Reference Site CT PCR NOT DETECTED Not Detect. A not detected test result does not exclude the possibility of infection because test results can be affected by improper specimen collection, concurrent antibiotic therapy, or the number of organisms in the specimen which may be below the sensitivity of the test. As with many diagnostic tests, results from the Xpert CT/NG assay should be interpreted in conjunction with other laboratory and clinical data available to the clinician. Xpert CT/NG performance has not been evaluated in patients less than 14 years of age. The assay should not be used for the evaluation of suspected sexual abuse or for other medico-legal indications. Additional testing is recommended in any circumstance when false positive or false negative results could lead to adverse medical, social or psychological consequences. NG PCR NOT DETECTED Not Detect. A not detected test result does not exclude the possibility of infection because test results can be affected by improper specimen collection, concurrent antibiotic therapy, or the number of organisms in the specimen which may be below the sensitivity of the test. As with many diagnostic tests, results from the Xpert CT/NG assay should be interpreted in conjunction with other laboratory and clinical data available to the clinician. Xpert CT/NG performance has not been evaluated in patients less than 14 years of age. The assay should not be used for the evaluation of suspected sexual abuse or for other medico-legal indications. Additional testing is recommended in any circumstance when false positive or false negative results could lead to adverse medical, social or psychological consequences. [address] [id number] Report Signed Patient: Ginny Wade#: [id number]: 1975Acct:[id number]/Sex: 47 / FADM Date: 08/19/23Loc: [facility] Dr: María Mayorga CNM Ordering Physician: María Mayorga CNM Date of Service: 08/19/23 Procedure(s): US pelvic and transvaginal Accession Number(s): [id number] cc: Lonny Garcia MD; Daviess,María CNM~ EXAMINATION: US PELVIS COMPLETE CLINICAL INFORMATION: Noninflammatory disorders of the vagina COMPARISON: Pelvic ultrasound 05/21/2016 TECHNIQUE: Transabdominal and transvaginal imaging was performed. FINDINGS: The uterus is of normal size and echogenicity measuring 10.5 x 3.7 x 4.8 cm. A regular homogeneous endometriu m is identified measuring 0.5 cm. Nabothian cysts in the cervix. Tiny 5 mm intramural myoma in the posterior body, previously 0.9 cm. A second previously seen tiny myoma was not identified on today's exam. A previously seen cystic vaginal lesion was not identified on today's exam. Both ovaries are of normal size and echogenicity. The right measures 2.5 x 1.5 x 1.3 cm for a volume of 2.5 m L. The left measures 2.8 x 1.6 x 1.4 cm for a volume of 3.3 mL. There is trace simple volume pelvic free fluid within physiologic limits of volume. US/US pelvic and transvaginal IMPRESSION: 1. A previously seen cystic vaginal les ion was not identified on today's exam. 2. A 5 mm intramural myoma in the poste rior body decreased in size. A second previously seen tiny myoma was not identified on today's exam. 3. Unremarkable sonographic appearance of the ovaries. Dictated By:Frances Hoffman MDSigned By:<Electronically signed by Frances Hoffman MD in OV>08/21/23 1813 DD/ 1115 Name: Selma Wade Age/Sex: 47/F : 1975 Unit#: [id number] Attend Dr: María Mayorga CNM Re07/03/23 Status: DEP REF Location: [facility] Disch: Specimen: [id number] Collected: 07/03/23 Status: COMP Req#: [id number] Received: 07/03/23 Source: Vaginal Sp Desc: Subm Dr: María Mayorga CNM Ordered: Routine Cult GS Procedure Result Verified Site Gram stain Final 07/04/23 Gram stain results: No polys 4+ epithelial cells 4+ Gram-positive rods 4+ Gram-negative rods Routine Culture Final 07/08/23 Result: 3+ Mixed hector (No group B strep in culture) Name: Selma Wade Age/Sex: 47/F : 1975 Unit#: [id number] Attend Dr: María Mayorga CNM Re07/03/23 Status: DEP REF Location: [facility] Disch: Specimen: [id number] Collected: 07/03/23 Status: CAN Req#: [id number] Received: 07/03/23 Source: Vaginal Sp Desc: Subm Dr: María Mayorga CNM Ordered: Acid-fast Cult Procedure Result Verified Site CANCELLED NOTE: 09/16/23 THERE IS NO EXPLANATION FOR WHY THIS TEST WAS CANCELED-mo'b. Name: Selma Wade Age/Sex: 47/F Attending: Faviola Hancock CNM : 1975 Submitted by: Faviola Hancock CNM Copies to: Lonny Garcia MD MR #: [id number] Status: DEP REF Collected: 11/21/22 Location: [facility] Received: 11/21/22 Interpretation Satisfactory for evaluation. Negative for intraepithelial lesion or malignancy. HPV mRNA E6/E7: NOT DETECTED This assay detects E6/E7 viral messenger RNA (mRNA) from 14 high-risk HPV types (16, 18, 31, 33, 35, 39, 45, 51, 52, 56, 58, 59, 66, 68) HPV testing performed by [employer] [facility], [place], [place]. See reference laboratory portion of the EMR for entire report. Clinical Information LMP: 11/13/2022 Previous PAP test: 01/03/2020, Unknown Material Received ThinPrep-Cervical Copies To Lonny Garcia MD [address] [id number] Faviola Hancock CNM [address] [place] [id number] Electronically Signed By: Jessi Bethea 12/01/22 1155 The Pap Test is a screening procedure with the inherent possibility of both false negative and false positive results. Results should be interpreted in the context of historic and current clinical findings. Reliability of the Pap Test is enhanced by performing the test on a regular repetitive basis. Patient: Selma Wade Age/Sex: 47/F MR#: [id number] Page 1 of 1 Assessment & Plan Assessment & Plan (1) Problematic vaginal discharge: Comment: Patient states it has been there since September of 2022 she has been treated twice for BV and once for yeast now malodorous greenish and extremely frustrating for patient. Full thorough eval being repeated. Code(s): N89.8 - Other specified noninflammatory disorders of vagina Plan note this is the discussion of recommendations and plan of 07/03/23.: Plan Patient is here for a problem visit to discuss a vaginal discharge that she has had since September she complains of a greenish discharge that is very wet and bothersome to her and she has been in to see other providers both in her primary care practice and in this office and has been tested for everything and discussions about allowing air to her vagina and not putting anything else in their have taken place she is not worried about non monogamous behavior on the part of her partner and she has been tested and she has been treated twice with Flagyl for Gardnerella and wants with fluconazole to no avail. She has recently also started to perceive an odor which is really discussed Ng to her and is affecting her marriage because she does not want to have sex and her is bothered by it too. She became tearful discussing this she does use panty liners and she cannot imagine not using panty liners and questions what should she do if she can not use panty liners. She is also not using condoms. Discussed the plan to evaluate for every possible finding testing sent for gonorrhea chlamydia trichomoniasis Gardnerella and yeast also the swab sent for acid-fast bacteria/mycobacteria also swab sent for group B strep also a routine culture was also sent unclear what may be found and unclear of treatment plan but we will check for every possibility. In the meantime I am also ordering a pelvic ultrasound to assess just in case there is some microscopic bleeding that is happening and turning her discharge green that might possibly be resulting from a polyp or some unseen issue. We will have a visit when all results are back if anything shows positive I recommend that she treated accordingly it is always possible that Gardnerella will show up again because it is a common finding and I would recommend that she treated if it shows up. In addition I strongly strongly recommend the use of partner condom use 100% of the time and to stop using panty liners. Discussed the necessity for air and clean water to a vaginal environment for health and that if we are checking everything them every possibility needs to be considered and if it turns out just simply to be Gardnerella she will still need to allow for healthy vaginal environment to reset it 's balance. 09/16/23-reviewed all of the above with the patient. Reviewed that it is reasonable for her to seek another opinion as she is very concerned about her health and what may be found, but so far we have not found anything that I can pinpoint is the cause of her concern. I also reviewed her past Pap smear and raise the possibility of consideration to an endometrial biopsy since the bleeding after intercourse is a new complaint of the last month. She says she is willing to have this and explained that it would be painful and she could have it with any of the providers here if she was not comfortable with me but she said she did not care but that she would schedule that so the next visit will be for an endometrial biopsy. I told the patient to expect cramping and pain with the procedure I it did also state that with future exams it is very possible that something could be found for instance at the very least Gardnerella -which is a common finding in which she has had in the past, though it did not show up the day that she was seen and had cultures with me on 07/03/2023. Coding Level of Care Code Est Pt Level 3 (75506) Diagnoses Problematic vaginal discharge N89.8
[2023-09-16 10:06] VITALS: BP 136/80; BMI 24.2
== END 2023-09-16 10:55 | disposition home or self-care (01) ==
LOC: HO.HWS 10:03
PROVIDERS: PCP Internal Medicine; Visit Provider Advanced Practice Midwife
DX: N89.8 Other specified noninflammatory disorders of vagina (principal)
CPT/HCPCS: 99213

== ENCOUNTER → 2023-09-16 10:03 | Outpatient (BNVA) | payer OTHER, SELFPAY | PROVIDERS: PCP Internal Medicine; Visit Provider Advanced Practice Midwife ==

== ENCOUNTER 2023-09-25 15:11 | Outpatient (AMB) | payer OTHER, SELFPAY ==
--- NOTE | 2023-09-25 15:17 | A.OFFVIS_ITS ---
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 A previously seen cystic vaginal les ion was not identified on today's exam. 2. A 5 mm intramural myoma in the poste rior body decreased in size. A second previously seen tiny myoma was not identified on today's exam. 3. Unremarkable sonographic appearance of the ovaries [facility] Medical History COVID-19 Pre-operative clearance Viral illness Pure hypercholesterolemia Smoker Anxiety and depression Migraine Nohemi rash of groin Surgical History History of eyelid surgery Status post abdominoplasty (~01/13/20) History of section History of tubal ligation Family History Father No problems noted. Mother No problems noted. Social History Housing: House Alcohol intake: current Alcohol intake frequency: holidays/special occasions only Patient Tobacco Use Status: Current everyday Tobacco user Cigarettes Per Day: 10 e-Cigarette/Vaping Use: Never Used Second Hand Smoke Exposure: No service: No Current occupational status: employed Current occupation: [employer] Current occupational exposures/hazards: No Cognitive needs: No Hearing needs: No Vision needs: No Female Reproductive History Menstrual Age of Menarche: 14 Date of last menstrual period: 09/13/23 control method: permanent sterilization Review of Systems Const All systems reviewed & are unremarkable except as noted in HPI and below Physical Exam Vital Signs: Last Vital Signs BP 120/72 11/16/23 15:20 BMI result Body Mass Index 23.8 General: Yes no CVA tenderness External Female Exam: normal external appearance and normal appearance of the urethra Speculum Exam - Vagina: normal appearance of the vagina, normal palpation, no lesions and no masses Speculum Exam - Cervix: normal appearance of the cervix, normal palpation, no lesions, no masses and nontender Bimanual exam- vagina & uterus: normal bimanual exam, normal palpation, uterine size normal, normal palpation, uterine shape normal, No Cervical tenderness present and non-tender Bimanual Exam- Adnexa, other: normal adnexae Back/Spine/Pelvis Back: no CVA tenderness Assessment & Plan Assessment & Plan (1) Uterine myoma: Code(s): D25.9 - Leiomyoma of uterus, unspecified Plan: Discussed with the patient the findings on pelvic ultrasound & the risk of myosarcoma; discussed with the patient the options of treatment including expectant management versus hysterectomy; the pros and cons, risks benefits of each approach were discussed with the patient including the fact that in cases of myosarcoma, surgical treatment can lead to early diagnosis and positively affects the prognosis; after further discussion, the patient decided to proceed with expectant management. Will repeat pelvic ultrasound periodically. Instructions given to patient to call in case any of the following occurs: pressure symptoms, abnormal uterine bleeding, pelvic pain; and to schedule a future office follow-up appointment for reassessment and to order a repeat ultrasound . All questions answered, the patient verbalized understanding and agreed with the plan . (2) Postcoital bleeding: Code(s): N93.0 - Postcoital and contact bleeding Plan: Discussed with the patient differential diagnosis of postcoital bleeding. GC and chlamydia taken with BV panel. Will schedule EMB/ECC within 2 weeks. Instruction given the patient to schedule appointment within 2 weeks (3) Bacterial vaginosis: Code(s): N76.0 - Acute vaginitis; B96.89 - Other specified bacterial agents as the cause of diseases classified elsewhere Plan: GC and chlamydia cultures with BV panel taken. Per CDC recommendation, will screen for STI, HepBs Ag, HIV, RPR, Hep C Ab ordered. Will treat with Flagyl 500 mg p.o. b.i.d. x 7 days, Instructions given to the patient to refrain from sexual activity or to use condoms consistently and correctly during the BV treatment regimen, not to douch, it might increase the risk for relapse, and to call if symptoms persist or recur. Orders: Orders HIV Ab/Ag Today Z20.2 - Contact with and (suspected) exposure to infections with a predominantly sexual mode of transmission Hepatitis C Antibody Today Z20.2 - Contact with and (suspected) exposure to infections with a predominantly sexual mode of transmission Hepatitis B Surface Antigen Today Z20.2 - Contact with and (suspected) exposure to infections with a predominantly sexual mode of transmission Syphilis Screen Today Z20.2 - Contact with and (suspected) exposure to infections with a predominantly sexual mode of transmission Medications: New metronidazole 500 mg PO BID 14 tabs 0RF 7 days Coding Level of Care Code Est Pt Level 3 (96021) Diagnoses Uterine myoma D25.9 Postcoital bleeding N93.0 Bacterial vaginosis N76.0; B96.89
[2023-09-25 15:20] VITALS: BP 120/72; BMI 23.8
== END 2023-09-25 15:42 | disposition home or self-care (01) ==
LOC: HO.HWS 15:11
PROVIDERS: PCP Internal Medicine; Visit Provider Obstetrics & Gynecology
DX: D25.9 Leiomyoma of uterus, unspecified (principal); N93.0 Postcoital and contact bleeding; N76.0 Acute vaginitis; B96.89 Other specified bacterial agents as the cause of diseases classified elsewhere
CPT/HCPCS: 99213

== ENCOUNTER 2023-09-25 15:11 | Outpatient (REF) | payer OTHER, SELFPAY ==
[2023-09-27 13:29] LABS: BV Int Neg Control Negative (Negative); BV Int Pos Control Positive (Positive)
== END 2023-09-25 15:12 | disposition home or self-care (01) ==
LOC: HO.LNP 15:11
PROVIDERS: PCP Internal Medicine; Visit Provider Obstetrics & Gynecology
DX: N93.0 Postcoital and contact bleeding (principal); N76.0 Acute vaginitis; B96.89 Other specified bacterial agents as the cause of diseases classified elsewhere; D25.1 Intramural leiomyoma of uterus
CPT/HCPCS: 87480; 87510; 87660

== ENCOUNTER 2023-09-25 15:48 | Outpatient (REF) | payer OTHER, SELFPAY ==
[2023-09-26 02:27] LABS: CT PCR NOT DETECTED (Not Detect.); NG PCR NOT DETECTED (Not Detect.)
[2023-09-26 08:26] LABS: HIV AB/AG Nonreactive (Nonreactive); HIV Num 1 0.07 S/CO (0.00-0.99); Hepatitis B Surface Antigen Negative (Negative); ~HepC Num1 0.07 S/CO (0.00-0.79); ~Hepatitis C Antibody Nonreactive (Nonreactive)
[2023-09-26 08:28] LABS: Syphilis Screen Nonreactive (Nonreactive)
== END 2023-09-25 15:49 | disposition home or self-care (01) ==
LOC: HO.LAB 15:48
PROVIDERS: PCP Internal Medicine; Visit Provider Obstetrics & Gynecology
DX: N93.0 Postcoital and contact bleeding (principal); N76.0 Acute vaginitis; B96.89 Other specified bacterial agents as the cause of diseases classified elsewhere
CPT/HCPCS: 0353U; 86780; 86803; 87340; 87389

== ENCOUNTER 2023-11-17 08:23 | Outpatient (REF) | payer OTHER, SELFPAY | END 2023-11-17 08:24 | disposition home or self-care (01) | LOC: HO.LNP 08:23 | PROVIDERS: PCP Internal Medicine; Visit Provider Obstetrics & Gynecology | DX: N93.0 Postcoital and contact bleeding (principal) | CPT/HCPCS: 58100; 81025; 88305 ==

== ENCOUNTER 2023-11-17 08:23 | Outpatient (AMB) | payer OTHER, SELFPAY ==
--- NOTE | 2023-11-17 08:26 | MHC.OFFVIS ---
Intake Vital Signs 11/17/23 08:33 Height 5 ft 4 in Weight 142 lb BMI 24.4 BP 126/74 Intake Visit Reasons: EMB/ECC Jira Administrator Required: No Information Interpreted: non-clinical & clinical It Director: It Director Present (Shira) Allergies No Known Allergies Allergy (Verified 11/17/23 08:35) Post menopausal: No Patient : No HPI HPI Comments History of Present Illness Details Presenting for EMB/ECC E for postcoital bleeding PFSH Medical History COVID-19 Pre-operative clearance Viral illness Pure hypercholesterolemia Smoker Anxiety and depression Migraine Nohemi rash of groin Surgical History History of eyelid surgery Status post abdominoplasty (~01/13/20) History of section History of tubal ligation Family History Father No problems noted. Mother No problems noted. Social History Housing: House Alcohol intake: current Alcohol intake frequency: holidays/special occasions only Patient Tobacco Use Status: Current everyday Tobacco user Cigarettes Per Day: 10 e-Cigarette/Vaping Use: Never Used Second Hand Smoke Exposure: No service: No Current occupational status: employed Current occupation: [employer] Current occupational exposures/hazards: No Cognitive needs: No Hearing needs: No Vision needs: No Female Reproductive History Menstrual Age of Menarche: 14 control method: permanent sterilization Physical Exam Vital Signs: Last Vital Signs BP 126/74 11/17/23 08:33 BMI result Body Mass Index 24.4 Office Procedures Endometrial Biopsy Details: The patient was counseled regarding the indication and benefits of endometrial sampling to rule out endometrial pathology including not limited to endometrial hyperplasia or endometrial cancer and others; The alternatives (Either do nothing vs. hysteroscopy D&C) & the risks were discussed with the patient including but not limited: pain, uterine perforation, bleeding, infection, possible injury to bladder, bowel, ureter, possible need for blood transfusion with all its possible risks. The patient verbalized understanding all questions answered and signed consent. Urine test done in the office was negative The patient was placed into the dorsal lithotomy position; a speculum was inserted in the vagina. Using aseptic technique for the procedure, the cervix was cleansed with Betadine. The anterior lip of the cervix was grasped with a single tooth tenaculum. The uterus was sounded to 7 cm with a 4 mm Pipelle was used. Tissues samples were obtained and placed in formalin, in a patient labeled container and sent to the pathology department. Endocervical curettage from the 4 quadrants of endocervix were scarred on afterwards with no complications. At the end of the procedure, there was minimal bleeding noted The patient tolerated the procedure well and was discharged in good condition with the following instructions: Nothing in the vagina until the bleeding stops. No sex until the bleeding stops, to call if any of the following occurs: fever (>100.4), flu-like symptoms, abdominal pain, heavy bleeding, four smelling vaginal discharge. The patient was instructed to schedule a Follow up appointment in 2 weeks to discuss pathology results of the biopsy and treatment options. This note was generated with a voice recognition program. Some errors may have been overlooked during the review of this note. Sometimes these errors may affect the content or meaning of a given sentence. [id number] Biopsy Assessment & Plan Assessment & Plan (1) Postcoital bleeding: Code(s): N93.0 - Postcoital and contact bleeding Plan: EMB/ECC done, see procedure note Orders: Orders AMB Endometrial Biopsy Today N93.0 - Postcoital and contact bleeding Coding Level of Care Code Procedure Only Diagnoses Postcoital bleeding N93.0 CPT Codes Endometrial Biopsy - CPT: 57136-Nbmzeyqezpd Biopsy ([id number])
[2023-11-17 08:33] VITALS: BP 126/74; BMI 24.4
== END 2023-11-17 08:52 | disposition home or self-care (01) ==
PROVIDERS: PCP Internal Medicine; Visit Provider Obstetrics & Gynecology
DX: N93.0 Postcoital and contact bleeding (principal); Z32.02 Encounter for pregnancy test, result negative
CPT/HCPCS: 58100

== ENCOUNTER 2023-12-24 07:19 | Outpatient (AMB) | payer OTHER, SELFPAY ==
--- NOTE | 2023-12-24 07:31 | A.OFFVIS_ITS ---
Intake Vital Signs 12/24/23 07:33 Height 5 ft 4 in Weight 149 lb 14.629 oz BMI 25.7 BP 118/74 Intake Visit Reasons: Annual/EMB+ECC follow up Intake Note: no concerns Detonator Assembler Required: No Information Interpreted: non-clinical & clinical Dry Cleaning Manager: Dry Cleaning Manager Present (Nita SHORT) Accompanied by: Self / Same As Patient Allergies No Known Allergies Allergy (Verified 12/24/23 07:38) Is last menstrual period known: Yes Last menstrual period: 12/17/23 HPI HPI Comments History of Present Illness Details Presenting for annual exam. No complaints. Last Pap/HPV was in 12/02 was negative Last Mammogram was in 08/02 BI-RADS 1 Last Colonoscopy The patient was seen for postcoital bleeding few weeks ago, the following workup was done: EMB/ECC done, the pathology showed the following: A. Endometrium, biopsy: Benign dyssynchronous endometrium with early to mid secretory glands and inactive glands, and scant benign endocervical glandular and squamous epithelium; no atypia or carcinoma. B. Endocervix, curettage: Benign endocervical glandular and squamous mucosa with acute inflammation and metaplasia; negative for dysplasia. GC/CT were negative Pelvic ultrasound done in 09/01 showed the following: IMPRESSION: 1. A previously seen cystic vaginal les ion was not identified on today's exam. 2. A 5 mm intramural myoma in the poste rior body decreased in size. A second previously seen tiny myoma was not identified on today's exam. 3. Unremarkable sonographic appearance of the ovaries. [facility], [facility] Medical History COVID-19 Pre-operative clearance Viral illness Pure hypercholesterolemia Smoker Anxiety and depression Migraine Nohemi rash of groin Surgical History History of eyelid surgery Status post abdominoplasty (~01/13/20) History of section History of tubal ligation Family History Father HTN (hypertension) Heart attack Mother No problems noted. Family/Other Breast cancer Social History Household Members: Spouse Household Members Other:: son Housing: House Alcohol intake: current Alcohol intake frequency: holidays/special occasions only Patient Tobacco Use Status: Current everyday Tobacco user Cigarettes Per Day: 6 e-Cigarette/Vaping Use: Never Used Second Hand Smoke Exposure: No service: No Current occupational status: employed Current occupation: [employer] Current occupational exposures/hazards: No Sexually active: Yes Sexual orientation: Straight/Heterosexual Gender identity: Female Cognitive needs: No Hearing needs: No Vision needs: No Female Reproductive History Menstrual Age of Menarche: 14 Date of last menstrual period: 12/17/23 Total pregnancies: 2 Full term: 2 Number of Living Children: 2 Date of last pap smear: 11/21/22 Date of Mammogram: 08/01/23 Review of Systems Const All systems reviewed & are unremarkable except as noted in HPI and below Card Reports as per HPI Resp Reports as per HPI GI Reports as per HPI and Reports no additional complaints Reports as per HPI Physical Exam Vital Signs: BMI result Body Mass Index 25.7 Const General: cooperative, healthy appearing and comfortable Chest Chest palpation & inspection: normal inspection of the chest and normal palpation of entire chest wall Breast/axilla inspection: normal inspection of the breasts and normal inspection of the axillae Breast/axilla palpation: normal palpation of the breasts, normal palpation of the axillae and no axillary lymphadenopathy Resp Effort & Inspection: normal respiratory effort Auscultation: clear to auscultation bilaterally Percussion: percussion normal Cardio Palpation: normal PMI Rate: regular rate Rhythm: regular rhythm Heart sounds: no murmurs and no rubs Peripheral pulses: Peripheral pulses 2+ throughout GI Inspection: Yes normal to inspection Palpation (GI): Soft to palpation, nontender, no guarding, not rigid and No hepatosplenomegaly present Percussion: Yes normal to percussion Auscultation: normal bowel sounds Rectal Exam - Female: deferred General: Yes bladder normal to palpation External Female Exam: No lesion Speculum Exam - Vagina: normal appearance of the vagina, normal palpation, normal vaginal discharge and not erythematous Speculum Exam - Cervix: normal appearance of the cervix and normal palpation Bimanual exam- vagina & uterus: normal bimanual exam, normal palpation, uterine size normal, bladder normal to palpation, consistency normal and normal palpation Bimanual Exam- Adnexa, other: normal adnexae, no masses and no tenderness Assessment & Plan Assessment & Plan (1) Well woman exam: Code(s): Z01.419 - Encounter for gynecological examination (general) (routine) without abnormal findings Plan: Cotesting not indicated this year. Instructions given the patient to schedule her next screening Mammogram in 08/02. Counseled the patient about the recommended dietary allowance of 1000 mg of Calcium & 600 IU of vitamin D. The patient was instructed to perform monthly self-breast exams and to schedule an annual exam in a year; All questions answered and the patient verbalized understanding. Instructed the patient to schedule annual exam in a year (2) Postcoital bleeding: Code(s): N93.0 - Postcoital and contact bleeding Plan: Discussed with the patient the workup for postcoital bleeding including pelvic ultrasound, GC/CT, EMB and ECC all within normal, the patient was reassured. Coding Level of Care Code Est Pt Prev Care 40-64y(30891) Diagnoses Well woman exam Z01.419 Postcoital bleeding N93.0
[2023-12-24 07:33] VITALS: BP 118/74; BMI 25.7
== END 2023-12-24 09:06 | disposition home or self-care (01) ==
PROVIDERS: PCP Internal Medicine; Visit Provider Obstetrics & Gynecology
DX: Z01.419 Encounter for gynecological examination (general) (routine) without abnormal findings (principal); N93.0 Postcoital and contact bleeding
CPT/HCPCS: 99396

== ENCOUNTER → 2023-12-24 07:19 | Outpatient (BNVA) | payer OTHER, SELFPAY | PROVIDERS: PCP Internal Medicine; Visit Provider Obstetrics & Gynecology ==

== ENCOUNTER 2024-01-20 12:21 | Outpatient (REF) | payer OTHER, SELFPAY ==
[2024-01-21 05:55] LABS: CT PCR NOT DETECTED (Not Detect.); NG PCR NOT DETECTED (Not Detect.)
[2024-01-21 13:35] LABS: BV Int Neg Control Negative (Negative); BV Int Pos Control Positive (Positive)
== END 2024-01-20 12:22 | disposition home or self-care (01) ==
LOC: HO.LAB 12:21
PROVIDERS: PCP Internal Medicine; Visit Provider Obstetrics & Gynecology
DX: N76.0 Acute vaginitis (principal); B96.89 Other specified bacterial agents as the cause of diseases classified elsewhere; Z20.2 Contact with and (suspected) exposure to infections with a predominantly sexual mode of transmission
CPT/HCPCS: 0353U; 87480; 87510; 87660

== ENCOUNTER 2024-01-20 12:21 | Outpatient (AMB) | payer OTHER, SELFPAY ==
[2024-01-20 12:33] VITALS: BP 100/66; BMI 25.6
--- NOTE | 2024-01-20 12:33 | MHC.OFFVIS ---
Intake Vital Signs 01/20/24 12:33 Height 5 ft 4 in Weight 149 lb BMI 25.6 BP 100/66 Intake Visit Reasons: BV Disability Hearing Officer: Disability Hearing Officer Present (Avis) Allergies No Known Allergies Allergy (Verified 01/20/24 12:34) Is last menstrual period known: Yes HPI HPI Comments History of Present Illness Details The patient is presenting complaining of vaginal discharge associated with foul odor, no other associated symptoms, vaginal itching or any other complaint [facility] Medical History COVID-19 Pre-operative clearance Viral illness Pure hypercholesterolemia Smoker Anxiety and depression Migraine Nohemi rash of groin Surgical History History of eyelid surgery Status post abdominoplasty (~01/13/20) History of section History of tubal ligation Family History Father HTN (hypertension) Heart attack Mother No problems noted. Family/Other Breast cancer Social History Household Members: Spouse Household Members Other:: son Housing: House Alcohol intake: current Alcohol intake frequency: holidays/special occasions only Patient Tobacco Use Status: Current everyday Tobacco user Cigarettes Per Day: 6 e-Cigarette/Vaping Use: Never Used Second Hand Smoke Exposure: No service: No Current occupational status: employed Current occupation: [employer] Housing Current occupational exposures/hazards: No Sexual orientation: Straight/Heterosexual Gender identity: Female Cognitive needs: No Hearing needs: No Vision needs: No Female Reproductive History Menstrual Age of Menarche: 14 Review of Systems Const All systems reviewed & are unremarkable except as noted in HPI and below Physical Exam Vital Signs: Last Vital Signs BP 100/66 01/20/24 12:33 BMI result Body Mass Index 25.6 General: Yes no CVA tenderness External Female Exam: normal external appearance and normal appearance of the urethra Speculum Exam - Vagina: normal appearance of the vagina, normal palpation, no lesions and no masses Speculum Exam - Cervix: normal appearance of the cervix, normal palpation, no lesions, no masses and nontender Bimanual exam- vagina & uterus: normal bimanual exam, normal palpation, uterine size normal, normal palpation, uterine shape normal, No Cervical tenderness present and non-tender Bimanual Exam- Adnexa, other: normal adnexae Back/Spine/Pelvis Back: no CVA tenderness Assessment & Plan Assessment & Plan (1) Bacterial vaginosis: Code(s): N76.0 - Acute vaginitis; B96.89 - Other specified bacterial agents as the cause of diseases classified elsewhere Plan: GC and chlamydia cultures with BV panel taken. Per CDC recommendation, will screen for STI, HepBs Ag, HIV, RPR, Hep C Ab ordered. Will treat with Flagyl 500 mg p.o. b.i.d. x 7 days, Instructions given to the patient to refrain from sexual activity or to use condoms consistently and correctly during the BV treatment regimen, not to douch, it might increase the risk for relapse, and to call if symptoms persist or recur. Orders: Orders Hepatitis B Surface Antigen Today B96.89 - Other specified bacterial agents as the cause of diseases classified elsewhere, N76.0 - Acute vaginitis HIV Ab/Ag Today B96.89 - Other specified bacterial agents as the cause of diseases classified elsewhere, N76.0 - Acute vaginitis Syphilis Screen Today B96.89 - Other specified bacterial agents as the cause of diseases classified elsewhere, N76.0 - Acute vaginitis Hepatitis C Antibody Today B96.89 - Other specified bacterial agents as the cause of diseases classified elsewhere, N76.0 - Acute vaginitis Medications: New metronidazole 500 mg PO BID 14 tabs 0RF 7 days Coding Level of Care Code Est Pt Level 3 (24439) Diagnoses Bacterial vaginosis N76.0; B96.89
== END 2024-01-20 13:20 | disposition home or self-care (01) ==
LOC: HO.HWS 12:22
PROVIDERS: PCP Internal Medicine; Visit Provider Obstetrics & Gynecology
DX: N76.0 Acute vaginitis (principal); B96.89 Other specified bacterial agents as the cause of diseases classified elsewhere
CPT/HCPCS: 99213

== ENCOUNTER 2024-01-20 12:50 | Outpatient (REF) | payer OTHER, SELFPAY | END 2024-01-20 12:51 | disposition home or self-care (01) | LOC: HO.LNP 12:50 | PROVIDERS: Visit Provider Obstetrics & Gynecology | DX: Z13.89 Encounter for screening for other disorder (principal) ==

== ENCOUNTER 2024-08-11 10:03 | Outpatient (REF) | payer OTHER, SELFPAY ==
--- NOTE | ~2024-08-11 | MM_ITS ---
EXAMINATION: MM SCREENING DIGITAL BREAST TOMOSYNTHESIS, BILATERAL CLINICAL INFORMATION: Screening. Asymptomatic. COMPARISON: Mammography: Comparison is made with available priors TECHNIQUE: Digital breast mammography with tomosynthesis is performed in both the craniocaudal and mediolateral oblique views along with computer-aided detection (CAD). FINDINGS: The breasts are heterogeneously dense, which may obscure small masses (ACR BI-RADS breast composition Category c). There are no significant masses, abnormal calcifications, or other abnormalities. MM/MM tomosynthesis screening BI IMPRESSION: No mammographic evidence of malignancy. ASSESSMENT: BI-RADS BI-RADS 1 - Negative RECOMMENDATION: Routine annual mammography screening. 1 year F/U This examination should not preclude the clinical evaluation of a suspicious palpable abnormality. This patient's information was entered into a reminder system with a target due date for their next mammogram. Electronically signed by: Lalita Linda DO 08/23/2024 12:42 PM EDT
== END 2024-08-11 10:04 | disposition home or self-care (01) ==
LOC: HO.MAMMO 10:03
PROVIDERS: PCP Internal Medicine; Visit Provider Internal Medicine
DX: Z12.31 Encounter for screening mammogram for malignant neoplasm of breast (principal)
CPT/HCPCS: 77063; 77067

== ENCOUNTER → 2024-08-11 10:15 | Outpatient (BNV) | payer OTHER, SELFPAY | PROVIDERS: PCP Internal Medicine; Visit Provider Internal Medicine | DX: Z12.31 Encounter for screening mammogram for malignant neoplasm of breast (principal) | CPT/HCPCS: 77063; 77067 ==

== ENCOUNTER 2025-02-17 08:17 | Outpatient (AMB) | payer OTHER, SELFPAY ==
--- OUTSIDE RECORDS SUMMARY | 2025-02-17 08:26 | XMS_ITS | Clinical Summary ---
Author Organization [employer] [facility] ity Address [address] [place] [address] Care Team Providers Care Facetor Name Role Phone Unavailable Primary Care Provider Unavailabl e Social History Tobacco Use Types Packs/Day Years Used Date Smoking Tobacco: Never Assessed Comments Unknown Sex and Gender Information Value Date Recorded Sex Assigned at Not on file Legal Sex Female 1:51 PM EST Gender Identity Not on file Sexual Orientation Not on file Plan of Treatment Health Maintenance Due Date Last Done Comments Breast Cancer Screening 1975 DTaP,Tdap,and Td Vaccines (1 - Tdap) 1994 Hepatitis B Vaccines (1 of 3 - 19+ 3-dose series) 1994 Cervical Cancer Screening: P ap Smear 1996 COVID-19 Vaccine (2023-2 5 season) 2024 Influenza Vaccine (Season Ended) 2025 HIB Vaccines Aged Out No longer eligi ble based on patient's age to complete this topic HPV Vaccines Aged Out No longer eligi ble based on patient's age to complete this topic Hepatitis A Vaccines Aged Out No long er eligible based on patient's age to complete this topic IPV Vaccines Aged Out No longer eligi ble based on patient's age to complete this topic MMR Vaccines Aged Out No longer eligi ble based on patient's age to complete this topic Meningococcal ACWY Vaccine Aged Out N o longer eligible based on patient's age to complete this topic Meningococcal B Vaccine Aged Out No l onger eligible based on patient's age to complete this topic Pneumococcal Vaccine: Pediat rics (0 to 5 Years) and At-Risk Patients (6 to 64 Years) Aged Out No longer eligible b ased on patient's age to complete this topic RSV Immunization Patients Un vidhi 20 months Aged Out No longer eligible b ased on patient's age to complete this topic Varicella Vaccines Aged Out No longer eligible based on patient's age to complete this topic
--- NOTE | 2025-02-17 08:34 | A.OFFVIS_ITS ---
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 Last mammogram was in 09/02 was BI-RADS 1 Last co testing was in 12/02 was negative [facility] Medical History COVID-19 Pre-operative clearance Viral illness Pure hypercholesterolemia Smoker Anxiety and depression Migraine Nohemi rash of groin Surgical History History of eyelid surgery Status post abdominoplasty (~01/13/20) History of section History of tubal ligation Family History Father HTN (hypertension) Heart attack Mother No problems noted. Family/Other Breast cancer Social History Household Members: Spouse Household Members Other:: son Housing: House Alcohol intake: current Alcohol intake frequency: holidays/special occasions only Patient Tobacco Use Status: Current everyday Tobacco user Cigarettes Per Day: 6 e-Cigarette/Vaping Use: Never Used Second Hand Smoke Exposure: No service: No Current occupational status: employed Current occupation: [employer] Housing Current occupational exposures/hazards: No Sexual orientation: Straight/Heterosexual Gender identity: Female Cognitive needs: No Hearing needs: No Vision needs: No Female Reproductive History Menstrual Age of Menarche: 14 Review of Systems Const All systems reviewed & are unremarkable except as noted in HPI and below Card Reports as per HPI Resp Reports as per HPI GI Reports as per HPI and Reports no additional complaints Reports as per HPI Physical Exam Vital Signs: Last Vital Signs BP 118/70 02/17/25 08:38 BMI result Body Mass Index 25.7 Const General: cooperative, healthy appearing and comfortable Chest Chest palpation & inspection: normal inspection of the chest and normal palpation of entire chest wall Breast/axilla inspection: normal inspection of the breasts and normal inspection of the axillae Breast/axilla palpation: normal palpation of the breasts, normal palpation of the axillae and no axillary lymphadenopathy Resp Effort & Inspection: normal respiratory effort Auscultation: clear to auscultation bilaterally Percussion: percussion normal Cardio Palpation: normal PMI Rate: regular rate Rhythm: regular rhythm Heart sounds: no murmurs and no rubs Peripheral pulses: Peripheral pulses 2+ throughout GI Inspection: Yes normal to inspection Palpation (GI): Soft to palpation, nontender, no guarding, not rigid and No hepatosplenomegaly present Percussion: Yes normal to percussion Auscultation: normal bowel sounds Rectal Exam - Female: deferred General: Yes bladder normal to palpation External Female Exam: No lesion Speculum Exam - Vagina: normal appearance of the vagina, normal palpation, normal vaginal discharge and not erythematous Speculum Exam - Cervix: normal appearance of the cervix and normal palpation Bimanual exam- vagina & uterus: normal bimanual exam, normal palpation, uterine size normal, bladder normal to palpation, consistency normal and normal palpation Bimanual Exam- Adnexa, other: normal adnexae, no masses and no tenderness Assessment & Plan Assessment & Plan (1) Abnormal uterine bleeding: Code(s): N93.9 - Abnormal uterine and vaginal bleeding, unspecified Category: Medical Plan: Co testing done, GC and chlamydia taken CBC, TSH, HCG, and pelvic ultrasound ordered. Discussed with the patient the different causes of abnormal bleeding including thyroid disorders, uterine and ovarian pathology, endometrial hyperplasia, carcinoma and other potential causes. Discussed with the patient the work up including CBC (to r/o anemia), TSH, pelvic Ultrasound, endometrial biopsy to r/o endometrial pathology. All questions answered and the patient verbalized understanding. Instructed the patient to schedule an appointment for an endometrial biopsy in 2 weeks. (2) Hot flashes: Code(s): R23.2 - Flushing Category: Medical Plan: Will check FSH/LH and discuss different options of treatment Orders: Orders Follicle Stimulating Hormone Today N93.9 - Abnormal uterine and vaginal bleeding, unspecified Lutenizing Hormone Today N93.9 - Abnormal uterine and vaginal bleeding, unspecified US pelvic and transvaginal Today N93.9 - Abnormal uterine and vaginal bleeding, unspecified HCG Quantitative Today N93.9 - Abnormal uterine and vaginal bleeding, unspecified Complete Blood Count no Diff Today N93.9 - Abnormal uterine and vaginal bleeding, unspecified TSH reflex Free T4 Today N93.9 - Abnormal uterine and vaginal bleeding, unspecified Coding Level of Care Code Est Pt Level 4 (54052) Diagnoses Abnormal uterine bleeding N93.9 Hot flashes R23.2
--- NOTE | 2025-02-17 08:34 | A.OFFVIS_ITS ---
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 Family/Other Breast cancer Social History Household Members: Spouse Household Members Other:: son Housing: House Alcohol intake: current Alcohol intake frequency: holidays/special occasions only Patient Tobacco Use Status: Current everyday Tobacco user Cigarettes Per Day: 6 e-Cigarette/Vaping Use: Never Used Second Hand Smoke Exposure: No service: No Current occupational status: employed Current occupation: [employer] Current occupational exposures/hazards: No Sexual orientation: Straight/Heterosexual Gender identity: Female Cognitive needs: No Hearing needs: No Vision needs: No Female Reproductive History Menstrual Age of Menarche: 14 Total pregnancies: 2 Full term: 2 Date of last pap smear: 11/21/22 (negative hpv, negative pap smear) Date of Mammogram: 08/11/24 (bi rad 1) Coding
[2025-02-17 08:38] VITALS: BP 118/70; BMI 25.7
== END 2025-02-17 09:17 | disposition home or self-care (01) ==
PROVIDERS: PCP Internal Medicine; Visit Provider Obstetrics & Gynecology
DX: N93.9 Abnormal uterine and vaginal bleeding, unspecified (principal); R23.2 Flushing
CPT/HCPCS: 99214

== ENCOUNTER 2025-02-17 08:17 | Outpatient (REF) | payer OTHER, SELFPAY ==
--- OUTSIDE RECORDS SUMMARY | 2025-02-17 10:00 | XMS_ITS | Clinical Summary ---
Author Organization [employer] [facility] ity Address [address] [place] [address] Care Team Providers Care Bottle Booth Attendant Name Role Phone Unavailable Primary Care Provider [...]
[2025-02-17 10:23] LABS: Hematocrit 41.7 % (37.0-47.0); Hemoglobin 13.7 g/dl (12.0-16.0); Mean Corpuscular HGB Conc 32.9 g/dl (31.0-35.0); Mean Corpuscular Hemoglobin 31.3 pg (27.0-33.0); Mean Corpuscular Volume 95.2 fL (80.0-98.0); Mean Platelet Volume 9.9 fL (9.4-12.3); Platelet Count 299 X10*3/uL (160-400); Red Blood Count 4.38 X10*6/uL (4.20-5.50); Red Cell Distribution Width 13.2 % (11.0-16.0); White Blood Count 6.3 X10*3/uL (4.8-10.8)
[2025-02-17 11:43] LABS: HCG Quantitative < 2 mIU/mL; TSH reflex Free T4 1.38 uIU/mL (0.32-4.0)
[2025-02-17 13:57] LABS: CT PCR NOT DETECTED (Not Detect.); NG PCR NOT DETECTED (Not Detect.)
[2025-02-18 05:54] LABS: Follicle Stimulating Hormone 43.9 mIU/mL; Lutenizing Hormone 50.1 mIU/mL
== END 2025-02-17 08:18 | disposition home or self-care (01) ==
LOC: HO.LAB 08:17
PROVIDERS: PCP Internal Medicine; Visit Provider Obstetrics & Gynecology
DX: N93.9 Abnormal uterine and vaginal bleeding, unspecified (principal)
CPT/HCPCS: 36415; 83001; 83002; 84443; 84702; 85027; 87491; 87591

== ENCOUNTER 2025-02-17 09:47 | Outpatient (REF) | payer OTHER, SELFPAY ==
--- OUTSIDE RECORDS SUMMARY | 2025-02-17 11:03 | XMS_ITS | Clinical Summary ---
Author Organization [employer] [facility] ity Address [address] [place] [address] Care Team Providers Care Analytics Lead Name Role Phone Unavailable Primary Care Provider [...]
== END 2025-02-17 09:48 | disposition home or self-care (01) ==
LOC: HO.LNP 09:47
PROVIDERS: Visit Provider Obstetrics & Gynecology
DX: Z13.89 Encounter for screening for other disorder (principal)

== ENCOUNTER 2025-03-11 13:54 | Outpatient (REF) | payer OTHER, SELFPAY ==
--- NOTE | ~2025-03-11 | US_ITS ---
CLINICAL HISTORY: N93.9 - Abnormal uterine and vaginal bleeding, unspecified US pelvis transabdominal and transvaginal Comparison: 08/19/2023 Findings: Transabdominal scanning performed for overall anatomy. Transvaginal scanning performed for additional detail. Anteverted uterus is 8.7 cm length. Normal myometrium. Endometrium 8.0 mm thickness. No lesions. Right ovary 4.1 x 3.4 x 2.5 cm. Left ovary 3.0 x 2.6 x 2.3 cm. Normal color Doppler of both ovaries. No free fluid. IMPRESSION: 1. Normal pelvic ultrasound This document has been electronically signed by: Gildardo Montana MD on 03/12/2025 08:50:54
--- OUTSIDE RECORDS SUMMARY | 2025-03-11 14:12 | XMS_ITS | Clinical Summary ---
Author Organization [employer] [facility] ity Address [address] [place] [address] Care Team Providers Care Edge Dyer Name Role Phone Unavailable Primary Care Provider [...]
== END 2025-03-11 13:55 | disposition home or self-care (01) ==
LOC: HO.US 13:54
PROVIDERS: PCP Internal Medicine; Visit Provider Obstetrics & Gynecology
DX: N93.9 Abnormal uterine and vaginal bleeding, unspecified (principal)
CPT/HCPCS: 76830; 76856

== ENCOUNTER → 2025-03-11 13:56 | Outpatient (BNV) | payer OTHER, SELFPAY | PROVIDERS: PCP Internal Medicine; Visit Provider Specialist | DX: N93.9 Abnormal uterine and vaginal bleeding, unspecified (principal) | CPT/HCPCS: 76830; 76856 ==

== ENCOUNTER 2025-03-16 12:57 | Outpatient (AMB) | payer OTHER, SELFPAY ==
[2025-03-16 13:03] VITALS: BMI 25.7
--- NOTE | 2025-03-16 13:03 | MHC.OFFVIS ---
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 Allergies No Known Allergies Allergy (Verified 02/17/25 08:38) Is last menstrual period known: Yes Last menstrual period: 09/07/20 Post menopausal: No Patient : No Do you need a note to return to daycare/school/sports/work: Yes (for surgery on friday) HPI Comments Details: Presenting for EMB the patient is anxious and does not want have it done in the office with a is interested in hysteroscopy D&C possible polypectomy myomectomy [facility] Medical History COVID-19 Pre-operative clearance Viral illness Pure hypercholesterolemia Smoker Anxiety and depression Migraine Nohemi rash of groin Surgical History History of eyelid surgery Status post abdominoplasty (~01/13/20) History of section History of tubal ligation Family History Father HTN (hypertension) Heart attack Mother No problems noted. Family/Other Breast cancer Social History Household Members: Spouse Household Members Other:: son Housing: House Alcohol intake: current Alcohol intake frequency: holidays/special occasions only Patient Tobacco Use Status: Current everyday Tobacco user Cigarettes Per Day: 6 e-Cigarette/Vaping Use: Never Used Second Hand Smoke Exposure: No service: No Current occupational status: employed Current occupation: [employer] Current occupational exposures/hazards: No Sexual orientation: Straight/Heterosexual Gender identity: Female Cognitive needs: No Hearing needs: No Vision needs: No Female Reproductive History Menstrual Age of Menarche: 14 Date of last menstrual period: 09/07/20 Total pregnancies: 2 Full term: 2 Review of Systems Card Reports as per HPI and Reports no additional complaints Resp Reports as per HPI and Reports no additional complaints GI Reports as per HPI and Reports no additional complaints Reports as per HPI Physical Exam Vital Signs: BMI result Body Mass Index 25.7 Const General: cooperative, healthy appearing and comfortable Resp Effort & Inspection: normal respiratory effort Auscultation: clear to auscultation bilaterally Percussion: percussion normal Cardio Palpation: normal PMI Rate: regular rate Rhythm: regular rhythm Heart sounds: no murmurs and no rubs Peripheral pulses: Peripheral pulses 2+ throughout GI Inspection: Yes normal to inspection Palpation (GI): Soft to palpation, nontender, no guarding, not rigid and No hepatosplenomegaly present Percussion: Yes normal to percussion Auscultation: normal bowel sounds Rectal Exam - Female: deferred Assessment & Plan Assessment & Plan (1) Abnormal uterine bleeding: Code(s): N93.9 - Abnormal uterine and vaginal bleeding, unspecified Category: Medical Plan: Recommended to the patient that the next step in the workup of AUB is an endometrial sampling via hysteroscopy D&C possible polypectomy versus endometrial biopsy to r/o endometrial pathology including hyperplasia or cancer. All the pros and cons risks and benefits of each approach were discussed with the patient, endometrial biopsy being less invasive, office procedure with less sensitivity and inability diagnose a polyp and removal versus hysteroscopy done under anesthesia more invasive more sensitive to endometrial cancer and possibility of diagnosing and endometrial polyp with the possibility of polypectomy. All questions were answered pt verbalized understanding and decided to proceed with hysteroscopy D&C possible polypectomy/myomectomy Discussed with the patient the procedure , all benefits and risks including but not limited to inability to complete the procedure , insufficient endometrial tissue for a complete evaluation of the endometrial cavity , bleeding, infection, possible need for blood transfusion with all its risk ( HIV,syphilis, Hepatitis, anaphylaxis shock, others..), injury to bladder, rectum, possible need for laparoscopy/laparotomy or hysterectomy. The patient verbalized understanding and signed the consent. Instructions given the patient to stay NPO after midnight the day prior to the procedure and to take only the specific medication (s) discussed the morning of the surgical procedure and to schedule a 2 week postoperative appointment Coding Level of Care Code Est Pt Level 3 (82558) Diagnoses Abnormal uterine bleeding N93.9
== END 2025-03-16 13:32 | disposition home or self-care (01) ==
LOC: HO.HWS 12:57
PROVIDERS: PCP Internal Medicine; Visit Provider Obstetrics & Gynecology
DX: N93.9 Abnormal uterine and vaginal bleeding, unspecified (principal)
CPT/HCPCS: 99213

== ENCOUNTER → 2025-03-24 12:10 | Day surgery (SDC) | payer OTHER, SELFPAY ==
--- OUTSIDE RECORDS SUMMARY | 2025-03-16 15:37 | XMS_ITS | Clinical Summary ---
Author Organization [employer] 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
--- NOTE | 2025-03-23 08:57 | HO.ANESPROP2 ---
HPI - Anesthesia Eval Consult details Narrative: 49yo F for D&C Hysteroscopy possible myomectomy,possible polypectomy PMFSH Active Problems Active Problems: All Active Problems Hot flashes (Acute) Abnormal uterine bleeding (Acute) Well woman exam (Acute) Postcoital bleeding (Acute) Uterine myoma (Acute) Irregular menstruation, unspecified (Acute) Problematic vaginal discharge (Acute) Bacterial vaginosis (Acute) Screening for colon cancer (Acute) Low back pain (Acute) Adult general medical exam (Acute) Pure hypercholesterolemia (Acute) Cervical paraspinal muscle spasm (Acute) Smoker (Acute) Anxiety and depression (Acute) Migraine (Acute) Past Medical History Medical History COVID-19 Pre-operative clearance Viral illness Pure hypercholesterolemia Smoker Anxiety and depression Migraine Nohemi rash of groin Family History Family History Father HTN (hypertension) Heart attack Mother No problems noted. Family/Other Breast cancer Family history of problems with anesthesia: No Surgical History Surgical History History of eyelid surgery Status post abdominoplasty (~01/13/20) History of section History of tubal ligation History of Problems with Anesthesia: No Social History Social History Household Members: Spouse Household Members Other:: son Housing: House Alcohol intake: current Alcohol intake frequency: holidays/special occasions only Patient Tobacco Use Status: Current everyday Tobacco user Cigarettes Per Day: 6 e-Cigarette/Vaping Use: Never Used Second Hand Smoke Exposure: No service: No Current occupational status: employed Current occupation: [employer] Current occupational exposures/hazards: No Sexual orientation: Straight/Heterosexual Gender identity: Female Cognitive needs: No Hearing needs: No Vision needs: No Meds Allergies Allergy/AdvReac Type Severity Reaction Status Date / Time No Known Allergies Allergy Verified 02/17/25 08:38 Assessment and Plan Assessment Anesthesia Assessment: Chart Reviewed Final Anesthetic Review Family History of Problems with Anesthesia: No History of Problems with Anesthesia: No
--- NOTE | 2025-03-24 13:17 | PC.NURSE ---
Pt arrived for scheduled procedure. Pt drank black coffee at 7am. Procedure time 2:30pm. Pt states will be traveling to [place] today at 8pm alone. Per pt she notifed staff at Dr. Camp's office and they advised her she can have surgery on 03/24/25 and there was no need to reschedule. RN contacted Anesthesiologist Dr. Barahona. Dr. Barahona at bedside discussed with pt. Pt to reschedule procedure due to risks related to traveling alone today at 8pm. Pt agreed with plan and discharged from pre op. Pt michelet f/u with Dr. Camp's office.
== END ==
LOC: HO.SSS 12:11
PROVIDERS: PCP Internal Medicine; Visit Provider Obstetrics & Gynecology
DX: N93.9 Abnormal uterine and vaginal bleeding, unspecified (principal); Z53.8 Procedure and treatment not carried out for other reasons

== ENCOUNTER 2025-04-08 11:38 | Day surgery (SDC) | payer OTHER, SELFPAY ==
--- OUTSIDE RECORDS SUMMARY | 2025-03-24 14:57 | XMS_ITS | Clinical Summary ---
Author Organization [facility] ity Address [address] [place] [address] Care Team Providers Care Orthopaedic General Name Role Phone Unavailable Primary Care Provider [...]
[2025-04-06 10:43] VITALS: BMI 25.7
--- NOTE | 2025-04-07 09:28 | HO.ANESPROP2 ---
HPI - Anesthesia Eval Consult details Narrative: 49yo F for D&C Hysteroscopy, possible myomectomy / polypectomy [facility] Active Problems Active Problems: All Active Problems (Updated 02/17/25 @ 08:58 by Mauricio Camp MD) Hot flashes (Acute) Abnormal uterine bleeding (Acute) Well woman exam (Acute) Postcoital bleeding (Acute) Uterine myoma (Acute) Irregular menstruation, unspecified (Acute) Problematic vaginal discharge (Acute) Bacterial vaginosis (Acute) Screening for colon cancer (Acute) Low back pain (Acute) Adult general medical exam (Acute) Pure hypercholesterolemia (Acute) Cervical paraspinal muscle spasm (Acute) Smoker (Acute) Anxiety and depression (Acute) Migraine (Acute) Past Medical History Medical History COVID-19 Pre-operative clearance Viral illness Pure hypercholesterolemia Smoker Anxiety and depression Migraine Nohemi rash of groin Family History Family History Father HTN (hypertension) Heart attack Mother No problems noted. Family/Other Breast cancer Family history of problems with anesthesia: No Surgical History Surgical History History of eyelid surgery Status post abdominoplasty (~01/13/20) History of section History of tubal ligation History of Problems with Anesthesia: No Social History Social History Household Members: Spouse Household Members Other:: son Housing: House Alcohol intake: current Alcohol intake frequency: holidays/special occasions only Patient Tobacco Use Status: Current everyday Tobacco user Cigarettes Per Day: 6 e-Cigarette/Vaping Use: Never Used Second Hand Smoke Exposure: No service: No Current occupational status: employed Current occupation: [employer] Housing Current occupational exposures/hazards: No Sexual orientation: Straight/Heterosexual Gender identity: Female Cognitive needs: No Hearing needs: No Vision needs: No Meds Allergies Allergy/AdvReac Type Severity Reaction Status Date / Time No Known Allergies Allergy Verified 03/24/25 13:09 Home Medications ?Medication ?Instructions ?Recorded ?Confirmed ?Last Taken ?Type No Known Home Meds 03/24/25 03/24/25 Unknown History Exam Height,Weight and Vital Signs: Height 5 ft 3 in Weight 65.771 kg Assessment and Plan Assessment Anesthesia Assessment: Chart Reviewed Final Anesthetic Review Family History of Problems with Anesthesia: No History of Problems with Anesthesia: No
[2025-04-08 12:18] VITALS: BMI 25.5
--- NOTE | 2025-04-08 12:19 | MHC.SHP ---
Pre-Procedural Eval Section A - 24 Hr Update-Section A only Date of Service: 04/08/25 The patient is an INPATIENT: No Changes since office visit: No Cold of Flu in the past 2 weeks, No New Medical Problems, No Changes in Medication and No Patient answered all questions The patient has been examined within 24 hours of the surgical procedure. The History & Physical has been completed within 30 days and I have reviewed it.: Yes Section B - Complete if H&P > 30 days Chief Complaint: Abnormal uterine and vaginal bleeding, unspecified Allergies: Allergies Allergy/AdvReac Type Severity Reaction Status Date / Time No Known Allergies Allergy Verified 04/08/25 12:17 Plan Diagnosis/Plan: Unchanged I have reviewed the history and physical and performed a pertinent physical examination on my patient. No changes have occurred unless specified. Time Spent With Patient Time: Total time managing care of this patient today ____ minutes.
[2025-04-08 12:20] LABS: UPreg QC Valid YES; Urine Pregnancy NEGATIVE (NEGATIVE)
[2025-04-08 12:26] VITALS: BP 117/77; PULSE 77; RESP 20; TEMP 36.8; O2SAT 98
[2025-04-08] MEDS: Lactated Ringers 1,000 ML 100 ML IVCONT (12:33)
--- NOTE | 2025-04-08 12:50 | P.CONAN_ITS ---
[facility] Active Problems Active Problems: All Active Problems Hot flashes (Acute) Abnormal uterine bleeding (Acute) Well woman exam (Acute) Postcoital bleeding (Acute) Uterine myoma (Acute) Irregular menstruation, unspecified (Acute) Problematic vaginal discharge (Acute) Bacterial vaginosis (Acute) Screening for colon cancer (Acute) Low back pain (Acute) Adult general medical exam (Acute) Pure hypercholesterolemia (Acute) Cervical paraspinal muscle spasm (Acute) Smoker (Acute) Anxiety and depression (Acute) Migraine (Acute) Past Medical History Medical History COVID-19 Pre-operative clearance Viral illness Pure hypercholesterolemia Smoker Anxiety and depression Migraine Nohemi rash of groin Functional capacity: independent ambulation Family History Family History Father HTN (hypertension) Heart attack Mother No problems noted. Family/Other Breast cancer Family history of problems with anesthesia: No Surgical History Surgical History History of eyelid surgery Status post abdominoplasty (~01/13/20) History of section History of tubal ligation History of Problems with Anesthesia: No Social History Social History Household Members: Spouse Household Members Other:: son Housing: House Alcohol intake: current Alcohol intake frequency: holidays/special occasions only Patient Tobacco Use Status: Current everyday Tobacco user Tobacco use type: Cigarette Cigarettes Per Day: 6 Smoked in Last 30 Days: Yes e-Cigarette/Vaping Use: Never Used Frequency of e-Cigarette/Vaping Use: 5-6 cig/day Second Hand Smoke Exposure: No Use of substances other than those prescribed or required for medical reasons: No Have you been hit, kicked, punched, or otherwise hurt by someone within the past year? If so, by whom?: No Are you DNR?: No Advance Directives: No Advance Directives Information Provided: Yes service: No Current occupational status: employed Current occupation: [employer] Housing Current occupational exposures/hazards: No Sexual orientation: Straight/Heterosexual Gender identity: Female Cognitive needs: No Hearing needs: No Vision needs: No Meds Allergies Allergy/AdvReac Type Severity Reaction Status Date / Time No Known Allergies Allergy Verified 04/08/25 12:17 Active Medications: Current Medications Albuterol Sulfate (Albuterol Sulfate (0.083%) 2.5 Mg/3 Ml Vial.Neb) 2.5 mg INHALE ONCE PRN PRN Reason: Shortness of Breath/Wheezing Lactated Ringer's (Lr) 1,000 mls @ 100 mls/hr IVCONT .Q10H MATTHEW Last Admin: 04/08/25 12:33 Dose: 100 mls/hr Home Medications ?Medication ?Instructions ?Recorded ?Confirmed ?Last Taken ?Type No Known Home Meds 03/24/25 04/08/25 Unknown History Exam Height,Weight and Vital Signs: Height 5 ft 4 in Weight 67.3 kg Last Vital Signs Temp 98.3 F 04/08/25 12:26 Pulse 77 04/08/25 12:26 Resp 20 04/08/25 12:26 BP 117/77 04/08/25 12:26 Pulse Ox 98 04/08/25 12:26 O2 Del Method Room Air 04/08/25 12:26 Pertinent Lab Results Pertinent Lab Results: Laboratory Tests 04/08/25 11:54 Urine Test NEGATIVE Airway Mallampati Class: II TM Dist: >3cm Neck ROM: Full Heart: RRR Lungs: CTA Assessment and Plan Assessment Anesthesia Assessment: Anesthesia Plan Discussed and Smoking Cess. Discussed Final Anesthetic Review Family History of Problems with Anesthesia: No History of Problems with Anesthesia: No NPO: Yes ASA Class: II Final Preanesthetic Review: Meds/Allgs Chart Reviewed, Consent Obtained/Reviewed and Anes Risks/Benef Reviewed Patient Risk: Low Procedure Risk: Low Anesthetic Plan Anesthetic Plan: GA Disposition: Standard PACU
--- NOTE | 2025-04-08 13:54 | P.OP_ITS ---
Operative Note Operative Note Date of Service: 04/08/25 Narrative: Preop Diagnosis: Abnormal uterine bleeding Operation: Diagnostic Hysteroscopy, Dilataion & Curettage Post Op Diagnosis: Normal endometrial and endocervical cavity, no evidence of pathology QBL: Minimal Anesthesia: GLMA Surgeon: Mauricio Camp MD Client Support Analyst: None Complication: None Pathology: Endometrial Scrapings Procedure: The patient was put in the dorsal lithotomy position, scrubbed, and draped in the usual manner. A sterile speculum was inserted in the patient's vagina. The anterior lip of the cervix was grasped with a single tooth tenaculum. The cervix was dilated up to 5 mm, then the scope was inserted in the patient's uterus. Inspection revealed normal endocervical & endometrial cavity with no evidence of pathology. The scope was taken out of the uterine cavity , then sharp curetting was carried on with no complications. At the end of the procedure, all instruments were taken out of the patient uterine and vaginal cavity. The single tooth tenaculum was removed and homeostasis was assured using pressure. The patient tolerated the procedure well and was transferred to the PACU in a stable condition.
--- NOTE | 2025-04-08 13:54 | PM.OP ---
Brief Operative Note Date of Service: 04/08/25 Pre-op diagnosis: Abnormal uterine bleeding Post-op diagnosis: same (Normal endometrial care) Procedure: Hysteroscopy D&C Surgeon: Mauricio Camp MD Anesthesia: GLMA Was an Editorial Project Manager used for this Procedure?: No Estimated blood loss (mL): 0 Pathology: other (Endometrial Scrapping) Condition: stable Disposition: PACU
[2025-04-08 14:00] VITALS: BP 118/77; PULSE 84; RESP 18; TEMP 36.4; O2SAT 96
[2025-04-08] MEDS: Ketorolac Tromethamine 15 MG/ML VIAL 30 MG IVPUSH (14:00)
[2025-04-08 14:05] VITALS: BP 120/74; PULSE 82; RESP 16; O2SAT 95
[2025-04-08 14:10] VITALS: BP 128/75; PULSE 71; RESP 16; O2SAT 98
[2025-04-08 14:15] VITALS: BP 130/75; PULSE 71; RESP 16; O2SAT 100
[2025-04-08] MEDS: Acetaminophen 1,000 MG/100 ML PIGGYBACK 400 MG IV (14:25)
[2025-04-08 14:30] VITALS: BP 120/77; PULSE 66; RESP 18; TEMP 36.1; O2SAT 100
== END 2025-04-08 15:03 | disposition home or self-care (01) ==
PROVIDERS: PCP Internal Medicine; Visit Provider Obstetrics & Gynecology
PROC: 0UDB8ZZ Extraction of Endometrium, Via Natural or Artificial Opening Endoscopic (ICD-10-PCS; CPT 58558; principal; 2025-04-08 13:30)
DX: N93.9 Abnormal uterine and vaginal bleeding, unspecified (principal); B37.49 Other urogenital candidiasis; B34.9 Viral infection, unspecified; E78.00 Pure hypercholesterolemia, unspecified; G43.909 Migraine, unspecified, not intractable, without status migrainosus; F41.9 Anxiety disorder, unspecified; F17.210 Nicotine dependence, cigarettes, uncomplicated; Z98.890 Other specified postprocedural states
CPT/HCPCS: 58558; 81025; 88305; J0131; J1100; J1885; J2003; J2250; J2405; J2704; J3010

== ENCOUNTER → 2025-04-08 11:38 | Outpatient (BNV) | payer OTHER, SELFPAY | PROVIDERS: PCP Internal Medicine; Visit Provider Obstetrics & Gynecology | DX: N93.9 Abnormal uterine and vaginal bleeding, unspecified (principal) | CPT/HCPCS: 58558 ==

== ENCOUNTER 2025-04-25 11:38 | Outpatient (AMB) | payer OTHER, SELFPAY ==
--- NOTE | 2025-04-25 11:38 | A.OFFVIS_ITS ---
Intake Visit Reasons: post op/ultrasound results Allergies No Known Allergies Allergy (Verified 04/08/25 12:17) HPI Comments Details: The patient is presenting post hysteroscopy D&C no complaints minimal vaginal bleeding no feverishness chills or abdominal pain. The pathology showed the following: Endometrium, curettage: Inactive endometrium with stromal and glandular breakdown; negative for atypia, hyperplasia or malignancy The following workup was done: H&H= 13.7/41.7 TSH, hCG, GC and chlamydia were negative. FSH/LH =43.1/50.1 Co testing was done was negative. Mammogram was BI-RADS 1 Pelvic ultrasound showed the following: IMPRESSION: 1. Normal pelvic ultrasound [facility] Medical History COVID-19 Pre-operative clearance Viral illness Pure hypercholesterolemia Smoker Anxiety and depression Migraine Nohemi rash of groin Surgical History History of eyelid surgery Status post abdominoplasty (~01/13/20) History of section History of tubal ligation Family History Father HTN (hypertension) Heart attack Mother No problems noted. Family/Other Breast cancer Social History Household Members: Spouse Household Members Other:: son Housing: House Alcohol intake: current Alcohol intake frequency: holidays/special occasions only Patient Tobacco Use Status: Current everyday Tobacco user Tobacco use type: Cigarette Cigarettes Per Day: 6 e-Cigarette/Vaping Use: Never Used Second Hand Smoke Exposure: No service: No Current occupational status: employed Current occupation: [employer] Current occupational exposures/hazards: No Sexual orientation: Straight/Heterosexual Gender identity: Female Cognitive needs: No Hearing needs: No Vision needs: No Female Reproductive History Menstrual Age of Menarche: 14 Review of Systems Const All systems reviewed & are unremarkable except as noted in HPI and below Reports as per HPI and Reports no additional complaints GI Reports no additional complaints Reports no additional complaints Telehealth Telehealth Telehealth Platform: Telephone Location of provider rendering services: practice address Location of patient: address on file Patient Identification confirmed using: Name, : Yes Telehealth method: video Patient verbally consented to treatment: Yes Patient verbally consented to billing insurance company: Yes Patient informed of any privacy concerns related to visit: Yes Minutes spent on Phone/Video with Pt.: 3 Assessment & Plan Assessment & Plan (1) Abnormal uterine bleeding: Code(s): N93.9 - Abnormal uterine and vaginal bleeding, unspecified Category: Medical Plan: Discussed with the patient the results of the work up done and options of treatment including Lysteda, BCP's, Mirena IUD, endometrial ablation and hysterectomy. All pros, cons, risks and benefits if each option was discussed with the patient and the patient decided to think about it and get back to us. All questions answered the patient verbalized understanding. I spent a total of 20 minutes reviewing the chart, talking to the patient via video and documenting in the medical record. Coding Level of Care Code Tele Est Pt Level 3 (88575) Diagnoses Abnormal uterine bleeding N93.9
--- OUTSIDE RECORDS SUMMARY | 2025-04-25 13:11 | XMS_ITS | Clinical Summary ---
Author Organization [employer] [facility] ity Address [address] [place] [address] Care Team Providers Care Commercial Real Estate Attorney Name Role Phone Unavailable Primary Care Provider [...]
== END 2025-04-25 11:52 | disposition home or self-care (01) ==
LOC: HO.HWS 11:38
PROVIDERS: PCP Internal Medicine; Visit Provider Obstetrics & Gynecology
DX: N93.9 Abnormal uterine and vaginal bleeding, unspecified (principal)
CPT/HCPCS: 99213

== ENCOUNTER → 2025-04-25 11:38 | Outpatient (BNVA) | payer OTHER, SELFPAY | PROVIDERS: PCP Internal Medicine; Visit Provider Obstetrics & Gynecology ==

== ENCOUNTER 2025-08-19 07:20 | Outpatient (REF) | payer OTHER, SELFPAY | END 2025-08-19 07:21 | disposition home or self-care (01) | LOC: HO.MAMMO 07:20 | PROVIDERS: PCP Internal Medicine; Visit Provider Internal Medicine | DX: Z12.31 Encounter for screening mammogram for malignant neoplasm of breast (principal) | CPT/HCPCS: 77063; 77067 ==

== ENCOUNTER → 2025-08-19 07:30 | Outpatient (BNV) | payer OTHER, SELFPAY | PROVIDERS: PCP Internal Medicine; Visit Provider Radiology Body Imaging | DX: Z12.31 Encounter for screening mammogram for malignant neoplasm of breast (principal) | CPT/HCPCS: 77063; 77067 ==

== ENCOUNTER 2025-09-05 09:46 | Outpatient (REF) | payer OTHER, SELFPAY ==
--- NOTE | ~2025-09-05 | XR_ITS ---
EXAMINATION: XR LUMBOSACRAL SPINE CLINICAL INFORMATION: M54.50 - Low back pain, unspecified COMPARISON: None available. TECHNIQUE: Three views of the lumbosacral spine. FINDINGS: 5 lumbar type vertebral bodies. No evidence of acute fracture or spondylolisthesis. Vertebral body heights are maintained. Disc spaces are relatively maintained. No suspicious bony lesion. SI joints are symmetric. No suspicious soft tissue calcification. XR/XR lumbar spine 2-3V IMPRESSION: No radiographic evidence of acute findings.. Electronically signed by: Jay Jay Kern MD 09/05/2025 11:31 AM EDT
--- OUTSIDE RECORDS SUMMARY | 2025-09-05 13:33 | XMS_ITS | Clinical Summary ---
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 Role Phone Unavailable Primary Care Provider [...] Cervical Cancer Screening: P ap Smear 1996 Depression Screening 11/10/2024 COVID-19 Vaccine (1 - 2023-2 5 season) 2025 Influenza Vaccine (#1) 2025 RSV Immunization Adult Patie nts (1 - 1-dose 75+ series) 2050 HIB Vaccines Aged Out No longer eligi [...] 5 Years) and At-Risk Patients (6 to 49 Years) Aged Out No longer eligible b ased on patient's age to complete this topic RSV Immunization Patients Un vidhi 20 months Aged Out No longer eligible b ased on patient's age to complete this topic Varicella Vaccines Aged Out No longer eligible based on patient's age to complete this topic
== END 2025-09-05 09:47 | disposition home or self-care (01) ==
LOC: HO.HMGCX 09:46
PROVIDERS: PCP Internal Medicine; Visit Provider Nurse Practitioner Family
DX: R10.13 Epigastric pain (principal); M54.50 Low back pain, unspecified
CPT/HCPCS: 72100

== ENCOUNTER 2025-09-05 09:46 | Outpatient (AMB) | payer OTHER, SELFPAY ==
--- NOTE | 2025-09-05 09:59 | AM.OFFWIN_ITS ---
Intake Vital Signs 09/05/25 10:00 Height 5 ft 4 in Weight 146 lb BMI 25.1 BP 150/68 H Blood Pressure Location Lt brachial Position Sitting Pulse 87 Pulse Source Pulse Oximeter Temp 98.2 F Temp Source Oral Pulse Oximetry (%) 99 Oxygen Delivery Method Room Air Intake Visit Reasons: EP Chest pain, Lower back pain Intake Note: Patient presents with c/o of burning chest pain x1 week & bilateral burning pain in low back x1 week. Patient Tobacco Use Status: Current everyday Tobacco user Allergies No Known Allergies Allergy (Verified 09/05/25 10:02) Medication List - Last Reconciled 09/05/25 by Aline Quarles NP acetaminophen 1,000 mg (2 x 500 mg) PO Q6H cyclobenzaprine 10 mg PO BEDTIME lidocaine 5% 1 patch topical DAILY Do you need a note to return to daycare/school/sports/work: Yes HPI HPI Comments History of Present Illness Details 49 y/o Female patient who presents to [facility] walk [facility] with c/o Lower midline back pain for 1 week. She does describe her pain as burning and no radiating. Reports pain worse with prolonged sitting and standing. Denies numbness or tingling. Denies injury or trauma to the back. Denies bladder or bowel symptoms. She has not taken any OTC or home remedies medications for pain relief because It does not work for me . Pt also c/o Epigastric chest region burning and discomfort. Denies Heart palpitations, SOB or CP. Denies h/o GERD and denies eating oily, spicy foods. Symptoms started 1 week ago. She has not taken Any OTC medications. Denies nausea, vomiting, diarrhea or constipation. [facility] Medical History COVID-19 Pre-operative clearance Viral illness Pure hypercholesterolemia Smoker Anxiety and depression Migraine Nohemi rash of groin Surgical History History of eyelid surgery Status post abdominoplasty (~01/13/20) History of section History of tubal ligation Family History Father HTN (hypertension) Heart attack Mother No problems noted. Family/Other Breast cancer Social History Household Members: Spouse Household Members Other:: son Housing: House Alcohol intake: current Alcohol intake frequency: holidays/special occasions only Patient Tobacco Use Status: Current everyday Tobacco user Tobacco use type: Cigarette Cigarettes Per Day: 6 e-Cigarette/Vaping Use: Never Used Second Hand Smoke Exposure: No service: No Current occupational status: employed Current occupation: [employer] Current occupational exposures/hazards: No Sexual orientation: Straight/Heterosexual Gender identity: Female Cognitive needs: No Hearing needs: No Vision needs: No Female Reproductive History Menstrual Age of Menarche: 14 Review of Systems Const All systems reviewed & are unremarkable except as noted in HPI and below Physical Exam Vital Signs: Last Vital Signs Temp 98.2 F 09/05/25 10:00 Pulse 87 09/05/25 10:00 BP 150/68 H 09/05/25 10:00 Pulse Ox 99 09/05/25 10:00 Oxygen Delivery Method Room Air 09/05/25 10:00 BMI result Body Mass Index 25.1 Const General: no acute distress Nutritional Appearance: well nourished Orientation/consciousness: patient oriented x3 Resp Effort & Inspection: normal respiratory effort Auscultation: clear to auscultation bilaterally Cardio Heart sounds: S1 normal heart sound present and S2 normal heart sound present Back/Spine/Pelvis Back: back tenderness Thoracic/Lumbar Spine: pain with thoraco-lumbar ROM, paraspinal muscle tenderness, thoraco-lumbar spasm and lumbar spinal tenderness Neuro General: patient oriented x3, gait normal and moves all extremities Assessment & Plan Assessment & Plan (1) Low back pain: Code(s): M54.50 - Low back pain, unspecified Qualifiers: Chronicity: acute Back pain laterality: midline Sciatica presence: without sciatica Qualified Code(s): M54.50 - Low back pain, unspecified Plan: Ordered Xray Ordered Lido patches and muscle relaxants. NSAIDs or Acetaminophen for pain relief. Ice/Hot Rest back. Declined PT (2) Epigastric pain: Code(s): R10.13 - Epigastric pain Plan: Probably GERD Ordered Omeprazole Advised avoiding spicy oily foods. Orders: Orders XR lumbar spine 2-3V Today M54.50 - Low back pain, unspecified Medications: New cyclobenzaprine 10 mg PO BEDTIME 14 tabs 0RF M54.50 - Low back pain, unspecified lidocaine 5% leave on most painful area for up to 12 hrs 1 patch topical DAILY 30 ea 0RF M54.50 - Low back pain, unspecified acetaminophen 1,000 mg (2 x 500 mg) PO Q6H 30 caps 0RF pain M54.50 - Low back pain, unspecified omeprazole 20 mg PO DAILY 30 caps 0RF R10.13 - Epigastric pain Coding Level of Care Code Est Pt Level 4 (20705) Diagnoses Acute midline low back pain without sciatica M54.50 Chronicity: acute Back pain laterality: midline Sciatica presence: without sciatica Epigastric pain R10.13 Time Spent (min) 20
[2025-09-05 10:00] VITALS: BP 150/68; PULSE 87; TEMP 36.8; O2SAT 99; BMI 25.1
== END 2025-09-05 10:55 | disposition home or self-care (01) ==
PROVIDERS: PCP Internal Medicine; Visit Provider Nurse Practitioner Family
DX: M54.50 Low back pain, unspecified (principal); R10.13 Epigastric pain

== ENCOUNTER → 2025-09-05 10:58 | Outpatient (BNV) | payer OTHER, SELFPAY | PROVIDERS: PCP Internal Medicine; Visit Provider Radiology Diagnostic Ultrasound | DX: M54.50 Low back pain, unspecified (principal) | CPT/HCPCS: 72100 ==